=== PATIENT | female | born 2000 | race African-American/Black ===

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

== ENCOUNTER → 2018-03-28 | Outpatient (CLI) | payer SELFPAY ==
--- NOTE | 2018-03-28 14:03 | RADIOLOGY REPORT (SQ) ---
EXAM DESCRIPTION: U/S [id number] TRNABD 1GES W/ODOP COMPLETED DATE/TIME: 03/28/2018 1:26 pm REASON FOR STUDY: Z34.01 ENCNTR FOR SUPRVSN OF NORMAL FIRST PREG, FIRST TRIMESTER Z34.01 ENCNTR FOR SUPRVSN OF NORMAL FIRST PREG, FIRST TRIMES LMP 01/23/2018 COMPARISON: None. TECHNIQUE: Transabdominal static and realtime grayscale images acquired of the pelvis. Additional se lected spectral and color Doppler images recorded. All images stored on PACs. bHCG: Not drawn. CLINICAL DATES: 9 weeks 1 day LIMITATIONS: None. FINDINGS: FETUS: Living intrauterine . ULTRASOUND EGA: 8 weeks 5 days ULTRASOUND AUNG: 11/02/2018 CRL: 2.1 cm FHR: 171 beats per minute. SUBCHORIONIC BLEED: No SIZE OF BLEED: Not applicable. UTERUS: No masses or anomalies. 10 x 7 x 8.7 cm. CERVICAL LENGTH: 2.9 cm. Closed. RIGHT ADNEXA: Ovary not seen. No adnexal free fluid. No adnexal masses. LEFT ADNEXA: Ovary not seen. No adnexal free fluid. No adnexal masses. FREE FLUID: None. OTHER: No other significant finding. IMPRESSION: LIVING INTRAUTERINE . EGA 8 weeks 5 days. Trimester of : First - 0 to 13 weeks. TECHNICAL DOCUMENTATION: JOB ID: [id number] [employer]- All Rights Reserved rev-03/21 Reading location - IP/workstation name: [email or web address]
== END ==
LOC: RAD 14:46
PROVIDERS: ATTEND Nurse Practitioner Women's Health
DX: Z34.01 Encounter for supervision of normal first pregnancy, first trimester (principal)
CPT/HCPCS: 76801

== ENCOUNTER 2018-04-15 16:51 | Emergency (ER) | payer SELFPAY ==
[2018-04-15 17:32] LABS: APPEARANCE,URINE CLOUDY; BILIRUBIN,URINE NEGATIVE (NEGATIVE); COLOR,URINE YELLOW; GLUCOSE, URINE NEGATIVE (NEGATIVE); KETONES,URINE NEGATIVE (NEGATIVE); LEUKOCYTE ESTERASE,URINE SMALL (NEGATIVE); NITRITE,URINE NEGATIVE (NEGATIVE); PROTEIN,URINE NEGATIVE (NEGATIVE); URINE SPECIFIC GRAVITY 1.025; UROBILINOGEN,URINE NEGATIVE mg/dL (<2.0)
--- NOTE | 2018-04-15 17:46 | ER Document Report ---
HPI - HPI Pain Level: 4 Context: Patient is a 11 week 18 year old female who presents to the ED complaining of low back pain for 2 days. She describes it as an ache that is worse in certain positions and improve supine and with rest. denies pyuria, hematuria, abdominal pain, change in bowel habits - REPRODUCTIVE LMP: 11 weeks preg Reproductive: DENIES: : - DERM Skin Color: Normal Past Medical History - Social History Smoking Status: Never Smoker Chew tobacco use (# tins/day): No Frequency of alcohol use: None Drug Abuse: None Family History: Hypertension Patient has suicidal ideation: No Patient has homicidal ideation: No Pulmonary Medical History: Reports: Hx Asthma Renal/ Medical History: Denies: Hx Peritoneal Dialysis Infectious Medical History: Denies: Hx MRSA Past Surgical History: Reports: Hx Inguinal Hernia - Immunizations Immunizations up to date: Yes Hx Diphtheria, Pertussis, Tetanus Vaccination: Yes Vertical Provider Document - CONSTITUTIONAL Notes: PHYSICAL EXAM GENERAL: Alert, interacts well. LUNGS: Clear to auscultation bilaterally, no wheezes, rales, or rhonchi. No respiratory distress. HEART: Regular rate and rhythm. No murmurs, gallops, or rubs. ABDOMEN: Soft, nondistended, nontender. No guarding, rebound, or rigidity.. Bowel sounds present in all 4 quadrants. Back: Tenderness palpation of bilateral paralumbar musculature without any spinous process step-offs, deformities or tenderness. Negative for CVA tenderness EXTREMITIES: Moves all 4 extremities spontaneously. No edema, radial and dorsalis pedis pulses 2/4 bilaterally. No cyanosis. NEUROLOGICAL: Alert and oriented x4. Normal speech. PSYCH: Normal affect, normal mood. SKIN: Warm, dry, normal turgor. No rashes or lesions noted. - INFECTION CONTROL TRAVEL OUTSIDE OF THE [place] IN LAST 30 DAYS: No Course - Re-evaluation Re-evalutation: 04/15/18 17:45 Patient is a 18-year-old female presents emergency room the chief complaint of back pain during with any concerns for underlying pyelonephritis. Urinalysis consistent with early onset UTI given patient's status will treat. Patient given strict return precautions and education on utilizing Tylenol for as needed back pain. - Laboratory Laboratory results interpreted by me: 04/15/18 17:10 Ur Leukocyte Esterase SMALL H Urine Ascorbic Acid 40 H Discharge - Discharge Clinical Impression: Back pain Qualifiers: Back pain location: low back pain Chronicity: acute Back pain laterality: unspecified Sciatica presence: without sciatica Qualified Code(s): M54.5 - Low back pain Condition: Good Disposition: HOME, SELF-CARE Instructions: Low Back Pain ([facility]), Urinary Tract Infection ([facility]) Prescriptions: Cephalexin Monohydrate [Keflex 500 mg Capsule] 500 mg PO BID 5 Days capsule Referrals: JOCELIN BELTRAN ARBORER [Primary Care Provider] - Follow up as needed
[2018-04-15] MEDS ORDERED: CEPHALEXIN 500 MG CAPSULE PO ONE (17:47)
[2018-04-15] MEDS ORDERED: ACETAMINOPHEN 325 MG TABLET PO ONE (17:47)
== END 2018-04-15 17:52 | disposition home or self-care (01) ==
LOC: ER 16:51
DX: O26.91 Pregnancy related conditions, unspecified, first trimester (principal); M54.5 Low back pain; Z3A.11 11 weeks gestation of pregnancy
CPT/HCPCS: 81001; 99283

== ENCOUNTER 2018-06-08 00:35 | Emergency (ER) | payer MEDICAID ==
--- NOTE | 2018-06-08 01:41 | ER Document Report ---
ED Medical Screen (RME) - General Chief Complaint: Shortness Of Breath Stated Complaint: CHEST PAIN Time Seen by Provider: 06/08/18 01:36 Mode of Arrival: Ambulatory Information source: Patient Notes: 18-year-old female presents to ED for shortness of breath and chest pain. She states she was cleaning with bleach this morning became very short of breath she used her inhaler went to bed and she was fine that she woke up with chest pain she tried using her inhaler can she states that she did not have any relief from the pain when she used her inhaler tonight. She states she is still having some chest pain and some shortness of breath. Her lungs are clear to auscultation she states it hurts with each deep breath. O2 sats 96% she has a temp of 99.3 respirations are 20 unlabored. She is 19 weeks . I have greeted and performed a rapid initial assessment of this patient. A comprehensive ED assessment and evaluation of the patient, analysis of test results and completion of medical decision making process will be conducted by an additional ED providers. TRAVEL OUTSIDE OF THE [place] IN LAST 30 DAYS: No - Related Data Allergies/Adverse Reactions: No Known Allergies Allergy (Verified 04/15/18 16:52) Past Medical History Pulmonary Medical History: Reports: Hx Asthma Renal/ Medical History: Denies: Hx Peritoneal Dialysis Infectious Medical History: Denies: Hx MRSA Past Surgical History: Reports: Hx Inguinal Hernia - Immunizations Immunizations up to date: Yes Hx Diphtheria, Pertussis, Tetanus Vaccination: Yes Physical Exam - Vital signs Vitals: Temp Pulse Resp BP Pulse Ox 99.3 F 52 L 20 124/70 96 06/08/18 01:03 06/08/18 01:03 06/08/18 01:03 06/08/18 01:03 06/08/18 01:03 Course - Vital Signs Vital signs: Temp Pulse Resp BP Pulse Ox 99.3 F 52 L 20 124/70 96 06/08/18 01:03 06/08/18 01:03 06/08/18 01:03 06/08/18 01:03 06/08/18 01:03
--- NOTE | 2018-06-08 02:09 | RADIOLOGY REPORT (SQ) ---
EXAM DESCRIPTION: XR CHEST 2 VIEWS COMPLETED DATE/TME: 06/08/2018 01:37 CLINICAL HISTORY: 18 years Female, short of breath after cleaning with bleach COMPARISON: None. FINDINGS: Adequate lung volume, clear parenchyma, normal cardiac silhouette, and intact bony thorax. IMPRESSION: No acute cardiopulmonary findings.
--- NOTE | 2018-06-08 05:06 | ER Document Report ---
ED Respiratory Problem - General Chief Complaint: Shortness Of Breath Stated Complaint: CHEST PAIN Time Seen by Provider: 06/08/18 01:36 Mode of Arrival: Ambulatory Notes: Patient is a 18-year-old female, at 19 weeks gestation, the comes emergency department for chief complaint of pain in her chest when she takes a deep breath. She states that she was cleaning with bleach during the morning, she started feeling short of breath, she states that she stopped, she has used her inhaler, but she has developed pain with deep breathing. She denies current shortness of breath, she denies nausea vomiting, dizziness, abdominal pain, vaginal bleeding, flank pain, headache. She does not smoke, she denies recent travel or surgery, denies lower extremity swelling, denies personal or family history of blood clot. She takes no daily medications. TRAVEL OUTSIDE OF THE [place] IN LAST 30 DAYS: No - Related Data Allergies/Adverse Reactions: No Known Allergies Allergy (Verified 04/15/18 16:52) Past Medical History - General Information source: Patient - Social History Smoking Status: Never Smoker Frequency of alcohol use: None Drug Abuse: None Lives with: Family Family History: Hypertension Patient has suicidal ideation: No Patient has homicidal ideation: No Pulmonary Medical History: Reports: Hx Asthma Renal/ Medical History: Denies: Hx Peritoneal Dialysis Infectious Medical History: Denies: Hx MRSA Past Surgical History: Reports: Hx Inguinal Hernia - Immunizations Immunizations up to date: Yes Hx Diphtheria, Pertussis, Tetanus Vaccination: Yes Review of Systems - Review of Systems Constitutional: No symptoms reported EENT: No symptoms reported Cardiovascular: See HPI Respiratory: See HPI Gastrointestinal: No symptoms reported Genitourinary: No symptoms reported Female Genitourinary: No symptoms reported Musculoskeletal: No symptoms reported Skin: No symptoms reported Hematologic/Lymphatic: No symptoms reported Neurological/Psychological: No symptoms reported Physical Exam - Vital signs Vitals: Temp Pulse Resp BP Pulse Ox 99.3 F 52 L 20 124/70 96 06/08/18 01:03 06/08/18 01:03 06/08/18 01:03 06/08/18 01:03 06/08/18 01:03 - Notes Notes: GENERAL: Alert, interacts well. No acute distress. HEAD: Normocephalic, atraumatic. EYES: Pupils equal, round, and reactive to light. Extraocular movements intact. ENT: Oral mucosa moist, tongue midline. NECK: Full range of motion. Supple. Trachea midline. LUNGS: Clear to auscultation bilaterally, no wheezes, rales, or rhonchi. No respiratory distress. HEART: Regular rate and rhythm. Borderline bradycardia. No murmur ABDOMEN: Slightly gravid abdomen. No tenderness noted. Bowel sounds present in all 4 quadrants. EXTREMITIES: Moves all 4 extremities spontaneously. No edema, normal radial and dorsalis pedis pulses bilaterally. No cyanosis. BACK: no cervical, thoracic, lumbar midline tenderness. No saddle anesthesia, normal distal neurovascular exam. NEUROLOGICAL: Alert and oriented x3. Normal speech. [cranial nerves II through XII grossly intact]. PSYCH: Normal affect, normal mood. SKIN: Warm, dry, normal turgor. No rashes or lesions noted. Course - Re-evaluation Re-evalutation: Chest pain only with inspiration. Atypical symptoms. The only risk factor for pulmonary embolism patient has his . No indicators otherwise including no tachycardia, lower extremely swelling, recent travel, history of the same, no smoking, no tachypnea or hypoxia. No dyspnea on exertion. Chest x -ray reviewed and unremarkable. EKG reviewed and unremarkable. I did discuss with patient, states she feels good and she is ready to leave. Discussed follow -up and return precautions. Patient states understanding and agreement. - Vital Signs Vital signs: Temp Pulse Resp BP Pulse Ox 98.3 F 52 L 20 115/61 96 06/08/18 05:12 06/08/18 01:03 06/08/18 01:03 06/08/18 05:12 06/08/18 01:03 Discharge - Discharge Clinical Impression: Shortness of breath Chest pain Qualifiers: Chest pain type: unspecified Qualified Code(s): R07.9 - Chest pain, unspecified Condition: Stable Disposition: HOME, SELF-CARE Additional Instructions: Your workup and examination tonight do not show any concerning abnormalities. Take Tylenol for pain, symptoms of pain should resolve with time. You can use your albuterol inhaler as needed for wheezing/cough/shortness of breath. Follow-up with [facility] TECHNICIAN for additional evaluation and management. Return if you worsen including difficulty breathing, passing out, fever, severe pain, or any other concerning or worsening symptoms. Your chest pain has been diagnosed as pleuritis (pleurisy). This is an inflammation of the surface of the lung tissue. It can be caused by a virus or , occasionally, old scar tissue. It is painful but, for the most part, not a serious problem. This pain is usually made worse by deep breathing, coughing, or sudden movements of the upper body or arms. The treatment is relief of symptoms. It includes rest, antiinflammatory medication, and pain medicine. Resolution of the pain is usually rapid once antiinflammatory medication is started. Warning signs of a more serious problem include: a fever, shortness of breath, pain that radiates to your jaw, shoulders or arms, or coughing up bloody sputum. If any of these symptoms occur, call the physician at once.
[2018-06-08 06:30] VITALS: BP 115/61
--- NOTE | 2018-06-08 09:54 | EKG REPORT ---
SEVERITY:- NORMAL ECG - SINUS RHYTHM : Confirmed by: Ilan Lee 08-Jun-2018 09:53:23
== END 2018-06-08 05:20 | disposition home or self-care (01) ==
LOC: ER 00:35
DX: O99.512 Diseases of the respiratory system complicating pregnancy, second trimester (principal); J45.909 Unspecified asthma, uncomplicated; O26.892 Other specified pregnancy related conditions, second trimester; R07.1 Chest pain on breathing; Z3A.19 19 weeks gestation of pregnancy
CPT/HCPCS: 71046; 93005; 93010; 99285

== ENCOUNTER 2018-07-23 12:37 | Emergency (ER) | payer MEDICAID ==
[2018-07-23] MEDS ORDERED: ACETAMINOPHEN 325 MG TABLET PO ONE (13:59)
[2018-07-23] MEDS ORDERED: CEPHALEXIN 500 MG CAPSULE PO ONE (15:34)
--- NOTE | 2018-07-23 15:39 | ER Document Report ---
HPI - HPI Patient complains to provider of: Abscess Onset: Other - 3 days Onset/Duration: Persistent Quality of pain: Achy Pain Level: 4 Context: She complains of abscess to right medial thigh area for the past 3 days. Patient is currently 26 weeks . Patient denies any fever. Associated Symptoms: Other - Abscess to right thigh Exacerbated by: Movement Relieved by: Denies Similar symptoms previously: Yes Recently seen / treated by doctor: No - ROS ROS below otherwise negative: Yes Systems Reviewed and Negative: Yes All other systems reviewed and negative - CONSTITUTIONAL Constitutional: DENIES: Fever, Chills - REPRODUCTIVE Reproductive: DENIES: : - MUSCULOSKELETAL Musculoskeletal: REPORTS: Extremity pain - DERM Skin Color: Erythema Notes: Abscess Past Medical History - General Information source: Patient - Social History Smoking Status: Never Smoker Frequency of alcohol use: None Drug Abuse: None Lives with: Family Family History: Hypertension Patient has suicidal ideation: No Patient has homicidal ideation: No Pulmonary Medical History: Reports: Hx Asthma Renal/ Medical History: Denies: Hx Peritoneal Dialysis Infectious Medical History: Denies: Hx MRSA Past Surgical History: Reports: Hx Inguinal Hernia - Immunizations Immunizations up to date: Yes Hx Diphtheria, Pertussis, Tetanus Vaccination: Yes Vertical Provider Document - CONSTITUTIONAL Agree With Documented VS: Yes Exam Limitations: No Limitations General Appearance: WD/WN, No Apparent Distress - INFECTION CONTROL TRAVEL OUTSIDE OF THE [place] IN LAST 30 DAYS: No - HEENT HEENT: Atraumatic, Normocephalic - NECK Neck: Normal Inspection, Supple - RESPIRATORY Respiratory: Breath Sounds Normal, No Respiratory Distress - CARDIOVASCULAR Cardiovascular: Regular Rate, Regular Rhythm - BACK Back: Normal Inspection - MUSCULOSKELETAL/EXTREMETIES Musculoskeletal/Extremeties: MAEW - NEURO Level of Consciousness: Awake, Alert, Appropriate Motor/Sensory: No Motor Deficit - DERM Integumentary: Warm, Dry, Abscess Notes: mild erythema overlying abscess Course - Vital Signs Vital signs: Temp Pulse Resp BP Pulse Ox 98.4 F 92 14 110/66 100 07/23/18 12:47 07/23/18 12:47 07/23/18 12:47 07/23/18 12:47 07/23/18 12:47 Procedures - Incision and Drainage Right Leg Type: Simple Anesthetic type: 1% Lidocaine Blade size: 11 I&D procedure: Betadine prep applied Incision Method: Incision made by scalpel Amount/type of drainage: scant amount of purlent drainage Adult Front & Back picture: 1 - abscess Discharge - Discharge Clinical Impression: Abscess, Encounter for incision and drainage procedure Cellulitis Qualifiers: Site of cellulitis: extremity Site of cellulitis of extremity: lower extremity Laterality: right Qualified Code(s): L03.115 - Cellulitis of right lower limb Condition: Stable Disposition: HOME, SELF-CARE Instructions: Abscess ([facility]), Cephalexin ([facility]), Oral Narcotic Medication ([facility]) Additional Instructions: Return immediately for any new or worsening symptoms Followup with your primary care provider, call tomorrow to make a followup appointment Warm compresses to leg Prescriptions: Cephalexin Monohydrate [Keflex 500 mg Capsule] 500 mg PO Q6H 7 Days capsule Referrals: ROS CONNER MD [Primary Care Provider] - Follow up tomorrow
[2018-07-23 16:06] VITALS: BP 111/67
== END 2018-07-23 16:05 | disposition home or self-care (01) ==
LOC: ER 12:37
PROC: 0H9HXZZ Drainage of Right Upper Leg Skin, External Approach (ICD-10-PCS; principal; 2018-07-23)
DX: L02.415 Cutaneous abscess of right lower limb (principal); L03.115 Cellulitis of right lower limb
CPT/HCPCS: 99283; 10060; J3490

== ENCOUNTER 2018-07-29 20:14 | Emergency (ER) | payer MEDICAID ==
[2018-07-29 20:36] VITALS: BP 127/75
--- NOTE | 2018-07-29 20:48 | ER Document Report ---
HPI - HPI Patient complains to provider of: skin rash Onset: Other - 4 days Onset/Duration: Persistent Pain Level: 4 Context: Patient complains of pruritic skin rash to perineum that started after recently starting antibiotics. Patient was concerned she might be having an allergic reaction. Patient is currently 27 weeks . Associated Symptoms: Other - Skin rash Exacerbated by: Denies Relieved by: Denies Similar symptoms previously: No Recently seen / treated by doctor: Yes - ROS ROS below otherwise negative: Yes Systems Reviewed and Negative: Yes All other systems reviewed and negative - CONSTITUTIONAL Constitutional: DENIES: Fever - GASTROINTESTINAL Gastrointestinal: DENIES: Abdominal Pain - REPRODUCTIVE Reproductive: DENIES: : - DERM Skin Color: Normal Skin Problems: Rash Past Medical History - General Information source: Patient Last Menstrual Period: 27 weeks - Social History Smoking Status: Never Smoker Frequency of alcohol use: None Drug Abuse: None Occupation: Call center Lives with: Family Family History: Hypertension Pulmonary Medical History: Reports: Hx Asthma Renal/ Medical History: Denies: Hx Peritoneal Dialysis Infectious Medical History: Denies: Hx MRSA Past Surgical History: Reports: Hx Inguinal Hernia - Immunizations Immunizations up to date: Yes Hx Diphtheria, Pertussis, Tetanus Vaccination: Yes Vertical Provider Document - CONSTITUTIONAL Agree With Documented VS: Yes Exam Limitations: No Limitations General Appearance: WD/WN, No Apparent Distress - INFECTION CONTROL TRAVEL OUTSIDE OF THE [place] IN LAST 30 DAYS: No - HEENT HEENT: Atraumatic, Normocephalic - NECK Neck: Normal Inspection - RESPIRATORY Respiratory: Breath Sounds Normal, No Respiratory Distress - CARDIOVASCULAR Cardiovascular: Regular Rate, Regular Rhythm - REPRODUCTIVE Female Genitalia: Abnormal Inspection - Moist rash to perineum and inguinal folds with satellite lesions - MUSCULOSKELETAL/EXTREMETIES Musculoskeletal/Extremeties: MAEW, FROM - NEURO Level of Consciousness: Awake, Alert, Appropriate Motor/Sensory: No Motor Deficit - DERM Integumentary: Warm, Dry, Rash - Moist rash with maculopapular lesions with the perineum and inguinal folds Course - Re-evaluation Re-evalutation: 07/29/18 21:03 Patient is currently 27 weeks with a fungal skin rash, patient encouraged to follow-up with [facility] for recheck. Patient was recently on antibiotics for an abscess. Abscess appears to be resolving. Patient advised that she can discontinue the antibiotics. Good hygiene discussed with patient. - Vital Signs Vital signs: Temp Pulse Resp BP Pulse Ox 98.5 F 98 20 127/75 H 96 07/29/18 20:34 07/29/18 20:34 07/29/18 20:34 07/29/18 20:34 07/29/18 20:34 Discharge - Discharge Clinical Impression: Candidiasis Condition: Stable Disposition: HOME, SELF-CARE Instructions: Vaginal Yeast Infection ([facility]) Additional Instructions: Return immediately for any new or worsening symptoms Followup with your primary care provider, call tomorrow to make a followup appointment You may stop the oral antibiotics Prescriptions: Clotrimazole [Antifungal] 1 applic TP BID #113 cream..g. Referrals: ROS CONNER MD [Primary Care Provider] - Follow up tomorrow
== END 2018-07-29 21:09 | disposition home or self-care (01) ==
LOC: ER 20:14
DX: O98.812 Other maternal infectious and parasitic diseases complicating pregnancy, second trimester (principal); B37.2 Candidiasis of skin and nail; O99.512 Diseases of the respiratory system complicating pregnancy, second trimester; J45.909 Unspecified asthma, uncomplicated; Z3A.27 27 weeks gestation of pregnancy
CPT/HCPCS: 99282

== ENCOUNTER 2018-08-02 22:15 | Outpatient (CLI) | payer MEDICAID ==
--- NOTE | 2018-08-03 00:37 | RADIOLOGY REPORT (SQ) ---
EXAM DESCRIPTION: US LIMITED COMPLETED DATE/TME: 08/02/2018 00:00 CLINICAL HISTORY: 18 years, Female, Cervical Length COMPARISON: None. TECHNIQUE: Grayscale and Doppler images of the pelvis LIMITATIONS: None. FINDINGS: Cervix is closed and measures 3.3 cm in diameter. A single live intrauterine is identified. The fetus is in the cephalic position. heart rate measures 155 bpm. The placenta is anterior and marginal. IMPRESSION: Single live intrauterine . Closed cervix measuring 3.3 cm in length. 2011 [employer]- All Rights Reserved
[2018-08-03 01:33] LABS: APPEARANCE,URINE SLIGHTLY-CLOUDY; BILIRUBIN,URINE NEGATIVE (NEGATIVE); COLOR,URINE YELLOW; GLUCOSE, URINE NEGATIVE (NEGATIVE); KETONES,URINE NEGATIVE (NEGATIVE); LEUKOCYTE ESTERASE,URINE LARGE (NEGATIVE); NITRITE,URINE NEGATIVE (NEGATIVE); PROTEIN,URINE NEGATIVE (NEGATIVE); URINE SPECIFIC GRAVITY 1.012; UROBILINOGEN,URINE NEGATIVE mg/dL (<2.0)
[2018-08-03 01:45] LABS: URINE AMPHETAMINES SCREEN NEGATIVE; URINE BARBITURATES SCREEN NEGATIVE; URINE BENZODIAZEPINES SCREEN NEGATIVE; URINE COCAINE SCREEN NEGATIVE; URINE MARIJUANA (THC) SCREEN NEGATIVE; URINE METHADONE SCREEN NEGATIVE; URINE PHENCYCLIDINE SCREEN NEGATIVE
--- NOTE | 2018-08-03 02:16 | PROGRESS NOTE E ---
Progress Note NAME: ERON MATOS : 2000 AGE: 18Y DATE: 08/03/2018 ROOM: SUBJECTIVE: The patient is a 18-year-old G1 at 27 weeks and 2 days gestational age, who presented to triage with a chief complaint of spotting x1. Denies any actual vaginal bleeding, leakage of fluid, or any contractions. The patient does report good movement. The patient denies any high risk during this . The patient denies any fever, chills, nausea, vomiting, chest pain, shortness of breath, or any right upper quadrant pain. Ordered cervical length on the patient and the cervical length was measured at 3.3 cm via transvaginal ultrasound, done by Radiology. The cervix was also visualized to be closed. The presentation was vertex and the placenta was anterior and marginal. The patient was instituted also on tocometer, depicted no contractions whatsoever. heart tones depicted baseline of 130 beats per minute with present accelerations and absent decelerations with moderate variability for a 27 week gestational age. OBJECTIVE: VITAL SIGNS: The patient's vital signs are stable. Normotensive, not tachycardic, afebrile. GENERAL: Looks very comfortable. The patient is awake, alert, and oriented x3 in no apparent distress. CARDIAC: Cardiac regular rate and rhythm, no murmur, gallops, or rubs. LUNGS: Clear to auscultation bilaterally. No wheezes, rales, or rhonchi. ABDOMEN: Gravid. EXTREMITIES: Deep tendon reflexes 1+. No clubbing, cyanosis, or edema. 2+ pulses bilaterally. IMAGING: Cervix is closed, measures 3.3 cm in diameter. Single live intrauterine is identified. heart measures 155 beats per minute. Placenta is anterior and marginal. ASSESSMENT AND PLAN: A 18-year-old G1 at 27 weeks and 2 days gestational age, with vaginal spotting x1 episode. Very low likely chance of labor, given the presentation of no contractions on the monitor and no further bleeding or spotting visualized on the pad, with an adequate cervical length of 3.3 cm, and a closed cervix on visual transvaginal ultrasound. The patient is also very comfortable. The patient is given labor precautions and instructed on when to re-present. The patient will need to follow up with primary [facility]IVER in the next couple of days and will recommend repeat ultrasound in 3 to 4 weeks for evaluation of the placenta again. DICTATING PHYSICIAN: Sonia Kilgore MD [id number] PHY#: [id number] ID: [id number] JOB#: [id number] ACCT: [id number] cc: >
== END 2018-08-03 02:09 | disposition home or self-care (01) ==
LOC: LC 22:15
PROVIDERS: ATTEND Obstetrics & Gynecology
PROC: 4A1HXCZ Monitoring of Products of Conception, Cardiac Rate, External Approach (ICD-10-PCS; principal; 2018-08-02)
DX: O47.02 False labor before 37 completed weeks of gestation, second trimester (principal); Z3A.27 27 weeks gestation of pregnancy
CPT/HCPCS: 76815; 80307; 81001

== ENCOUNTER 2018-09-20 20:16 | Outpatient (CLI) | payer MEDICAID ==
[2018-09-20 21:18] LABS: APPEARANCE,URINE SLIGHTLY-CLOUDY; BILIRUBIN,URINE NEGATIVE (NEGATIVE); GLUCOSE, URINE NEGATIVE (NEGATIVE); KETONES,URINE TRACE mg/dL (NEGATIVE); LEUKOCYTE ESTERASE,URINE SMALL (NEGATIVE); NITRITE,URINE NEGATIVE (NEGATIVE); PROTEIN,URINE 100 mg/dL (NEGATIVE); URINE SPECIFIC GRAVITY 1.029
[2018-09-20 21:27] LABS: COLOR,URINE DARK YELLOW
[2018-09-20 21:33] LABS: URINE AMPHETAMINES SCREEN NEGATIVE; URINE BARBITURATES SCREEN NEGATIVE; URINE BENZODIAZEPINES SCREEN NEGATIVE; URINE COCAINE SCREEN NEGATIVE; URINE MARIJUANA (THC) SCREEN NEGATIVE; URINE METHADONE SCREEN NEGATIVE; URINE PHENCYCLIDINE SCREEN NEGATIVE
[2018-09-20] MEDS ORDERED: ACETAMINOPHEN 325 MG TABLET ONE (21:49)
[2018-09-20] MEDS ORDERED: PROCHLORPERAZINE MALEATE 10 MG TABLET ONE (21:49)
--- NOTE | 2018-09-20 22:06 | Non Stress Test Report ---
Non Stress Test Datetime Report Generated by CPN: 09/20/2018 22:05 DEMOGRAPHIC EGA NST: 34.2 INDICATION Indication for Study: Ordered by Provider Indication for Study (NST) Other: LC URINE RESULTS Urine Protein, NST: Positive Urine Ketones - NST: Positive Urine Glucose - NST: Negative Urine Blood - NST: Negative MONITORING Monitor Explained: Monitor Explained; Test Explained; Patient Verbalized Understanding Time on Monitor: 09/20/2018 20:42 Time off Monitor: 09/20/2018 22:00 NST Duration: 78 NST INTERVENTIONS NST Interventions: None Physician Notified NST: Carlo BABY A: [id number] BABY A Movement : Present Contraction Frequency : none FHR Baseline : 135 Accelerations : 15X15 Decelerations : None Variability : Moderate 6-25bpm NST Review: Meets Criteria for Reactive NST NST Review and Verified By : Ranjana Short RN NST Results: Reactive NST REPORT Report Trigger: Send Report
[2018-09-20] MEDS ORDERED: RINGERS SOLUTION,LACTATED 1,000 ML IV ONE (22:10)
[2018-09-20] MEDS ORDERED: ACETAMINOPHEN 325 MG TABLET PO ONE (22:10)
[2018-09-20] MEDS ORDERED: PROCHLORPERAZINE MALEATE 10 MG TABLET PO ONE (22:10)
== END 2018-09-20 23:05 | disposition home or self-care (01) ==
LOC: LC 20:16
PROVIDERS: ATTEND Obstetrics & Gynecology
PROC: 4A1HXCZ Monitoring of Products of Conception, Cardiac Rate, External Approach (ICD-10-PCS; principal; 2018-09-20)
DX: O47.03 False labor before 37 completed weeks of gestation, third trimester (principal); O26.893 Other specified pregnancy related conditions, third trimester; R42 Dizziness and giddiness; Z3A.34 34 weeks gestation of pregnancy
CPT/HCPCS: 59025; 81005; 80307; J3490; S0183

== ENCOUNTER 2018-10-05 11:43 | Outpatient (CLI) | payer MEDICAID ==
[2018-10-05 12:23] LABS: APPEARANCE,URINE CLEAR; BILIRUBIN,URINE NEGATIVE (NEGATIVE); COLOR,URINE YELLOW; GLUCOSE, URINE NEGATIVE (NEGATIVE); KETONES,URINE TRACE mg/dL (NEGATIVE); LEUKOCYTE ESTERASE,URINE SMALL (NEGATIVE); NITRITE,URINE NEGATIVE (NEGATIVE); PROTEIN,URINE NEGATIVE (NEGATIVE); URINE SPECIFIC GRAVITY 1.016
--- NOTE | 2018-10-05 12:27 | Non Stress Test Report ---
Non Stress Test Datetime Report Generated by CPN: 10/05/2018 12:27 DEMOGRAPHIC EGA NST: 36.3 INDICATION Indication for Study: Decreased Movement VITAL SIGNS Temperature - NST: 98.4 RESP - NST: 15 MONITORING Monitor Explained: Monitor Explained; Test Explained; Patient Verbalized Understanding Time on Monitor: 10/05/2018 12:00 Time off Monitor: 10/05/2018 12:26 NST Duration: 26 NST INTERVENTIONS NST Interventions: Reposition Patient Physician Notified NST: Dr Carlo BABY A: [id number] BABY A Movement : Present Contraction Frequency : irreg FHR Baseline : 125 Accelerations : 15X15 Decelerations : None Variability : Moderate 6-25bpm NST Review: Meets Criteria for Reactive NST NST Review and Verified By : Kylie Posey RN NST Results: Reactive NST REPORT Report Trigger: Send Report
[2018-10-05 12:37] LABS: URINE AMPHETAMINES SCREEN NEGATIVE; URINE BARBITURATES SCREEN NEGATIVE; URINE BENZODIAZEPINES SCREEN NEGATIVE; URINE COCAINE SCREEN NEGATIVE; URINE MARIJUANA (THC) SCREEN NEGATIVE; URINE METHADONE SCREEN NEGATIVE; URINE PHENCYCLIDINE SCREEN NEGATIVE
== END 2018-10-05 12:29 | disposition home or self-care (01) ==
LOC: LC 11:43
PROVIDERS: ATTEND Obstetrics & Gynecology
PROC: 4A1HXCZ Monitoring of Products of Conception, Cardiac Rate, External Approach (ICD-10-PCS; principal; 2018-10-05)
DX: O36.8130 Decreased fetal movements, third trimester, not applicable or unspecified (principal); Z3A.36 36 weeks gestation of pregnancy
CPT/HCPCS: 59025; 80307; 81001

== ENCOUNTER 2018-11-05 21:53 | Inpatient (IN) | payer MEDICAID ==
[2018-11-05] MEDS ORDERED: ACETAMINOPHEN 325 MG TABLET PO PRN (22:20)
[2018-11-05] MEDS ORDERED: DINOPROSTONE 10 MG VAGINAL INSERT.SR PV ONE (22:20)
[2018-11-05] MEDS ORDERED: OXYTOCIN/NORMAL SALINE 20 UNIT/1,000 ML RTUINJ IV PRN (22:20)
[2018-11-05] MEDS ORDERED: ZOLPIDEM TARTRATE 5 MG TABLET PO PRN (22:20)
[2018-11-05] MEDS ORDERED: RINGERS SOLUTION,LACTATED 1,000 ML IV PRN (22:20)
[2018-11-05] MEDS ORDERED: RINGERS SOLUTION,LACTATED 300 ML IV ONE (22:20)
[2018-11-05] MEDS ORDERED: MAG HYDROX/AL HYDROX/SIMETH SUSP 30 ML UDCUP PO PRN (22:20)
[2018-11-05] MEDS ORDERED: DINOPROSTONE 10 MG VAGINAL INSERT.SR ONE (22:48)
[2018-11-05 23:05] LABS: APPEARANCE,URINE CLEAR; BILIRUBIN,URINE NEGATIVE (NEGATIVE); COLOR,URINE YELLOW; GLUCOSE, URINE NEGATIVE (NEGATIVE); KETONES,URINE NEGATIVE (NEGATIVE); LEUKOCYTE ESTERASE,URINE MODERATE (NEGATIVE); NITRITE,URINE NEGATIVE (NEGATIVE); PROTEIN,URINE NEGATIVE (NEGATIVE); URINE SPECIFIC GRAVITY 1.017
[2018-11-05 23:06] LABS: ABSOLUTE EOSINOPHILS # (AUTO) 0.2 10^3/uL (0.0-0.6); ABSOLUTE LYMPHOCYTES (AUTO) 2.2 10^3/uL (0.5-4.7); ABSOLUTE MONOCYTES (AUTO) 0.7 10^3/uL (0.1-1.4); ABSOLUTE NEUT (AUTO) 3.7 10^3/uL (1.7-8.2); BASOPHILS % (AUTO) 0.4 % (0-2); EOSINOPHILS % (AUTO) 3.2 % (0-6); HEMATOCRIT 28.6 % (36.0-47.0); HEMOGLOBIN 9.3 g/dL (12.0-15.5); MEAN CORPUSCULAR HEMOGLOBIN 25.4 pg (27.0-33.4); MEAN CORPUSCULAR HGB CONC 32.7 g/dL (32.0-36.0); MEAN CORPUSCULAR VOLUME 78 fl (80-97); PLATELET COUNT 247 10^3/uL (150-450); RED BLOOD COUNT 3.67 10^6/uL (3.72-5.28); RED CELL DISTRIBUTION WIDTH 20.4 % (11.5-14.0); SEGMENTED NEUTROPHILS % (AUTO) 54.4 % (42-78); TOTAL CELLS COUNTED % (AUTO) 100 %; WHITE BLOOD COUNT 6.9 10^3/uL (4.0-10.5)
[2018-11-05 23:20] LABS: URINE AMPHETAMINES SCREEN NEGATIVE; URINE BARBITURATES SCREEN NEGATIVE; URINE BENZODIAZEPINES SCREEN NEGATIVE; URINE COCAINE SCREEN NEGATIVE; URINE MARIJUANA (THC) SCREEN NEGATIVE; URINE METHADONE SCREEN NEGATIVE; URINE PHENCYCLIDINE SCREEN NEGATIVE
[2018-11-06] MEDS ORDERED: ZOLPIDEM TARTRATE 5 MG TABLET ONE (01:23)
[2018-11-06] MEDS ORDERED: ACETAMINOPHEN 325 MG TABLET ONE (08:26)
[2018-11-06] MEDS ORDERED: OXYTOCIN 10 UNIT/ML VIAL ONE (12:26)
[2018-11-06] MEDS ORDERED: MISOPROSTOL 0.2 MG TABLET ONE (12:26)
[2018-11-06] MEDS ORDERED: LIDOCAINE 1% INJ-PF (10 MG/ML) 30 ML SDV ONE (12:27)
[2018-11-06] MEDS ORDERED: OXYTOCIN/NORMAL SALINE 20 UNIT/1,000 ML RTUINJ ONE (12:27)
[2018-11-06] MEDS ORDERED: NALBUPHINE HCL INJ 10 MG/1 ML AMPULE ONE (20:11)
[2018-11-06] MEDS ORDERED: ONDANSETRON HCL INJ/PF 4 MG/2 ML SDV ONE (20:28)
[2018-11-07] MEDS ORDERED: BUPIVACAINE HCL 0.25 % INJ/PF (2.5 MG/1 ML) 30 ML VIAL ONE (01:04)
[2018-11-07] MEDS ORDERED: ACETAMINOPHEN 325 MG TABLET PO ONE (09:46)
[2018-11-07] MEDS ORDERED: ACETAMINOPHEN 325 MG TABLET ONE (09:52)
[2018-11-07] MEDS ORDERED: OXYTOCIN/NORMAL SALINE 20 UNIT/1,000 ML RTUINJ ONE (10:12)
[2018-11-07] MEDS ORDERED: CEFAZOLIN 1 GM/D5W RTU 2 GM/100 ML RTUPB IV ONE (10:15)
[2018-11-07] MEDS ORDERED: CEFAZOLIN 1 GM/D5W RTU 1 GM/50 ML RTUPB IV ONE ×2 (10:16)
[2018-11-07] MEDS ORDERED: METHYLERGONOVINE MALEATE INJ/PF 0.2 MG/1 ML AMPULE ONE (11:13)
[2018-11-07] MEDS ORDERED: GLYCERIN/WITCH HAZEL LEAF 1 EACH MED..PAD TP PRN (11:32)
[2018-11-07] MEDS ORDERED: PROMETHAZINE HCL INJ 25 MG/1 ML VIAL IV PRN (11:32)
[2018-11-07] MEDS ORDERED: BENZOCAINE/MENTHOL AEROSOL SPRAY 56 ML TOP PRN (11:32)
[2018-11-07] MEDS ORDERED: DIBUCAINE 1% OINTMENT 28 GM TP PRN (11:32)
[2018-11-07] MEDS ORDERED: OXYTOCIN/NORMAL SALINE 20 UNIT/1,000 ML RTUINJ IV PRN (11:32)
[2018-11-07] MEDS ORDERED: NA PHOS,M-B/NA PHOS,DI-BA (ADULT) 133 ML ENEMA PR PRN (11:32)
[2018-11-07] MEDS ORDERED: METHYLERGONOVINE MALEATE INJ/PF 0.2 MG/1 ML AMPULE IM PRN (11:32)
[2018-11-07] MEDS ORDERED: DIPH/PERTUSS(ACELL)/TETANUS VAC/PF 0.5 ML SYR (>=10YO) IM PRN (11:32)
[2018-11-07] MEDS ORDERED: PSEUDOEPHEDRINE HCL 30 MG TABLET PO PRN (11:32)
[2018-11-07] MEDS ORDERED: ZOLPIDEM TARTRATE 5 MG TABLET PO PRN (11:32)
[2018-11-07] MEDS ORDERED: ACETAMINOPHEN 650 MG SUPP.RECT PR PRN (11:32)
[2018-11-07] MEDS ORDERED: MISOPROSTOL 0.2 MG TABLET PR PRN (11:32)
[2018-11-07] MEDS ORDERED: DIPHENHYDRAMINE HCL 25 MG CAPSULE PO PRN (11:32)
[2018-11-07] MEDS ORDERED: PROMETHAZINE HCL 25 MG SUPP.RECT PR PRN (11:32)
[2018-11-07] MEDS ORDERED: MAGNESIUM HYDROXIDE SUSP 30 ML UDCUP PO PRN (11:32)
[2018-11-07] MEDS ORDERED: PROMETHAZINE HCL 25 MG TABLET PO PRN (11:32)
[2018-11-07] MEDS ORDERED: ACETAMINOPHEN WITH CODEINE #3 TABLET PO PRN ×2 (11:32)
[2018-11-07] MEDS ORDERED: MEASLES,MUMPS&RUBELLA VACC/PF 0.5 ML VIAL SUBCUT PRN (11:32)
[2018-11-07] MEDS ORDERED: CEFAZOLIN 1 GM/D5W RTU 1 GM/50 ML RTUPB IV SCH ×2 (12:00)
[2018-11-07] MEDS ORDERED: IBUPROFEN 800 MG TABLET ONE (13:11)
[2018-11-07] MEDS ORDERED: FENTANYL/BUPIVACAINE/NS/PF 300 MCG/150 ML RTUINJ EPI ONE (13:28)
[2018-11-07] MEDS: FAMOTIDINE 20 MG TABLET PO SCH (21:25)
[2018-11-07] MEDS: IBUPROFEN 800 MG TABLET PO SCH (21:26)
[2018-11-08] MEDS: IBUPROFEN 800 MG TABLET PO SCH ×3 (06:14→21:21)
[2018-11-08 06:43] LABS: HEMATOCRIT 21.2 % (36.0-47.0); MEAN CORPUSCULAR HEMOGLOBIN 25.1 pg (27.0-33.4); MEAN CORPUSCULAR VOLUME 79 fl (80-97); PLATELET COUNT 193 10^3/uL (150-450); RED BLOOD COUNT 2.69 10^6/uL (3.72-5.28); RED CELL DISTRIBUTION WIDTH 20.7 % (11.5-14.0); WHITE BLOOD COUNT 13.2 10^3/uL (4.0-10.5)
[2018-11-08 07:01] LABS: HEMOGLOBIN 6.8 g/dL (12.0-15.5)
--- NOTE | 2018-11-08 09:53 | PDOC PROGRESS REPORT ---
Subjective-OB Progress Note for:: 11/08/18 Subjective: Doing well, no c/o, , voiding, ambulating Physical Exam (OB) Vital Signs: Temp Pulse Resp BP Pulse Ox 98.6 F 92 18 116/64 95 11/07/18 19:15 11/07/18 19:15 11/07/18 19:15 11/07/18 19:15 11/07/18 19:15 Intake & Output 11/07/18 11/08/18 11/09/18 06:59 06:59 06:59 Intake Total 550 Balance 550 - PIH/Pre-Eclampsia DTR's: 2 + Clonus: Negative Headache: Absent Epigastric Pain: No Visual Changes: No - Lochia Lochia Amount: Small 10-25 ml Lochia Color: Rubra/Red - Abdomen Description: Soft Hernia Present: No Fundal Description: Firm, Midline Fundal Height: u/u - u/2 Objective-Diagnostic Laboratory: 11/08/18 06:26 11/08/18 06:26 WBC 13.2 H RBC 2.69 L Hgb 6.8 L D Hct 21.2 L MCV 79 L MCH 25.1 L MCHC 32.0 RDW 20.7 H Plt Count 193 Assessment and Plan(PN) - Assessment and Plan (1) Anemia due to acute blood loss Is this a current diagnosis for this admission?: Yes (2) Chorioamnionitis, delivered, current hospitalization Is this a current diagnosis for this admission?: Yes (3) Delivery normal Is this a current diagnosis for this admission?: Yes - Time Spent with Patient Time with patient: Less than 15 minutes Medications reviewed and adjusted accordingly: Yes - Disposition Anticipated Discharge: Home Within: within 24 hours
[2018-11-08] MEDS: SENNOSIDES/DOCUSATE 8.6-50 MG 1 EACH TABLET PO SCH (10:50)
[2018-11-08] MEDS: FERROUS SULFATE 325 MG TABLET PO SCH ×3 (10:50→19:00)
[2018-11-08] MEDS: PRENATAL VITAMIN W DHA CAPSULE PO SCH (10:50)
[2018-11-08] MEDS: DOCUSATE SODIUM 100 MG CAPSULE PO SCH ×3 (10:50→19:00)
[2018-11-08] MEDS: FAMOTIDINE 20 MG TABLET PO SCH ×2 (10:50→21:21)
[2018-11-09] MEDS: IBUPROFEN 800 MG TABLET PO SCH ×2 (05:35→08:17)
[2018-11-09 08:09] VITALS: BP 104/56
[2018-11-09] MEDS: DOCUSATE SODIUM 100 MG CAPSULE PO SCH (10:20)
[2018-11-09] MEDS: PRENATAL VITAMIN W DHA CAPSULE PO SCH (10:20)
[2018-11-09] MEDS: FERROUS SULFATE 325 MG TABLET PO SCH (10:20)
[2018-11-09] MEDS: SENNOSIDES/DOCUSATE 8.6-50 MG 1 EACH TABLET PO SCH (10:20)
[2018-11-09] MEDS: FAMOTIDINE 20 MG TABLET PO SCH (10:20)
--- NOTE | 2018-11-09 10:50 | PDOC PROGRESS REPORT ---
Subjective-OB Progress Note for:: 11/09/18 Subjective: Doing well, on telephone during visit, baby not going home today, tolerating low H&H Physical Exam (OB) Vital Signs: Temp Pulse Resp BP Pulse Ox 98.0 F 79 18 104/56 L 100 11/09/18 10:41 11/09/18 10:41 11/09/18 10:41 11/09/18 07:24 11/09/18 10:41 Intake & Output 11/08/18 11/09/18 11/10/18 06:59 06:59 06:59 Intake Total 541 082 1400 Balance 748 061 5205 - PIH/Pre-Eclampsia DTR's: 1 + Clonus: Negative Headache: Absent Epigastric Pain: No Visual Changes: No - Lochia Lochia Amount: Scant < 10 ml Lochia Color: Rubra/Red - Abdomen Description: Soft Hernia Present: No Fundal Description: Firm, Midline Fundal Height: u/u - u/2 Objective-Diagnostic Laboratory: 11/08/18 06:26 Assessment and Plan(PN) - Assessment and Plan (1) Anemia due to acute blood loss Is this a current diagnosis for this admission?: Yes (2) Chorioamnionitis, delivered, current hospitalization Is this a current diagnosis for this admission?: Yes (3) Delivery normal Is this a current diagnosis for this admission?: Yes - Time Spent with Patient Time with patient: Less than 15 minutes Medications reviewed and adjusted accordingly: Yes - Disposition Anticipated Discharge: Home Within: within 24 hours
--- NOTE | 2018-11-09 10:53 | PDOC DISCHARGE SUMMARY ---
Final Diagnosis Discharge Date: 11/09/18 - Final Diagnosis (1) Anemia due to acute blood loss Is this a current diagnosis for this admission?: Yes (2) Chorioamnionitis, delivered, current hospitalization Is this a current diagnosis for this admission?: Yes (3) Delivery normal Is this a current diagnosis for this admission?: Yes Discharge Data - Discharge Medication Prescriptions: Ferrous Sulfate [Feosol 325 mg Tablet] 325 mg PO BID #60 tablet Home Medications: Pnv 102/Iron/Folate 1/Dss/Dha [Vitafol Fe+ Docusate Combo Pck] 1 cap PO DAILY 09/20/18 Albuterol Sulfate [Ventolin Hfa 8 gm Mdi (1 Mdi/ER Disp)] 1 puff PO PRN PRN 11/05/18 Ferrous Sulfate [Feosol 325 mg Tablet] 325 mg PO BID #60 tablet 11/09/18 Gestational Age: 41.1 Reason(s) for Admission: Induction of Labor Procedures: NST, Ultrasound Intrapartum Procedure(s): Spontaneous Vaginal Delivery Complication(s): Laceration-Vaginal, Hemorrhage-Uterine Atony Laceration-Degree: 1st - Diagnosis Test Laboratory: Temp Pulse Resp BP Pulse Ox 98.0 F 79 18 104/56 L 100 11/09/18 10:41 11/09/18 10:41 11/09/18 10:41 11/09/18 07:24 11/09/18 10:41 11/05/18 11/05/18 11/08/18 22:05 22:41 06:26 RBC 3.67 L 2.69 L Hgb 9.3 L 6.8 L D Hct 28.6 L 21.2 L Urine Opiates Screen NEGATIVE - Discharge information/Instructions Discharge Activity: Activity As Tolerated, No Lifting Over 10 Pounds, No Lifting/Push/Pulling, Pelvic Rest Discharge Diet: As Tolerated, Regular Disposition: HOME, SELF-CARE Follow up with: [facility] in: 3, Weeks
== END 2018-11-09 17:45 | disposition home or self-care (01) | DRG 805 ==
LOC: LR 21:53 → 2S 11-07 14:20
PROVIDERS: ADMIT Obstetrics & Gynecology Gynecology; ATTEND Obstetrics & Gynecology Gynecology
PROC: 4A1HXCZ Monitoring of Products of Conception, Cardiac Rate, External Approach (ICD-10-PCS; 2018-11-05)
PROC: 3E033VJ Introduction of Other Hormone into Peripheral Vein, Percutaneous Approach (ICD-10-PCS; 2018-11-06)
PROC: 10E0XZZ Delivery of Products of Conception, External Approach (ICD-10-PCS; principal; 2018-11-07)
PROC: 0HQ9XZZ Repair Perineum Skin, External Approach (ICD-10-PCS; 2018-11-07)
DX: O48.0 Post-term pregnancy (principal); O41.1230 Chorioamnionitis, third trimester, not applicable or unspecified; Z37.0 Single live birth; D62 Acute posthemorrhagic anemia; O70.0 First degree perineal laceration during delivery; O69.82X0 Labor and delivery complicated by other cord entanglement, without compression, not applicable or unspecified; O75.89 Other specified complications of labor and delivery; O90.81 Anemia of the puerperium; Z3A.41 41 weeks gestation of pregnancy
CPT/HCPCS: 36415; 80307; 81005; 85025; 85027; 86592; 86850; 86900; 86901; C1726; J0690; J2210; J2300; J2405; J2590; J3010; J3490

== ENCOUNTER 2018-11-19 18:56 | Emergency (ER) | payer MEDICAID ==
[2018-11-20] MEDS ORDERED: LIDOCAINE 2%/EPINEPHRINE INJ 20 ML VIAL INJ ONE (00:43)
--- NOTE | 2018-11-20 00:50 | ER Document Report ---
ED Skin Rash/Insect Bite/Abscs - General Chief Complaint: Abscess Stated Complaint: POSSIBLE ABSCESS Time Seen by Provider: 11/20/18 00:43 Notes: 18-year-old female presents to the emergency department for concern for abscess in the pilonidal area. She reports history of abscesses in had at least 7 in the last couple of years in the same area. She has never required treatment in the operating room. She denies any fevers, chills, nausea, or any other infectious symptoms. She denies any difficulty with bowel movements. She complains of exquisite tenderness at the site. TRAVEL OUTSIDE OF THE [place] IN LAST 30 DAYS: No COUNTRY TRAVELED TO/FROM: [place] - Related Data Allergies/Adverse Reactions: No Known Allergies Allergy (Verified 11/19/18 18:58) Past Medical History - Social History Smoking Status: Never Smoker Chew tobacco use (# tins/day): No Drug Abuse: None Family History: Hypertension Patient has suicidal ideation: No Patient has homicidal ideation: No Pulmonary Medical History: Reports: Hx Asthma Renal/ Medical History: Denies: Hx Peritoneal Dialysis Infectious Medical History: Denies: Hx MRSA Past Surgical History: Reports: Hx Inguinal Hernia - Immunizations Immunizations up to date: Yes Hx Diphtheria, Pertussis, Tetanus Vaccination: Yes Review of Systems - Review of Systems Constitutional: See HPI EENT: No symptoms reported Cardiovascular: No symptoms reported Respiratory: No symptoms reported Gastrointestinal: No symptoms reported Genitourinary: No symptoms reported Female Genitourinary: No symptoms reported Musculoskeletal: No symptoms reported Skin: See HPI Hematologic/Lymphatic: No symptoms reported Neurological/Psychological: No symptoms reported Physical Exam - Vital signs Vitals: Temp Pulse Resp BP Pulse Ox 98.8 F 89 18 114/66 97 11/19/18 19:13 11/19/18 19:13 11/19/18 19:13 11/19/18 19:13 11/19/18 19:13 - Skin Skin Temperature: Warm Skin Moisture: Dry Skin Color: Normal Skin irregularity: Abscess - Pilonidal cyst right side at the cleft of the buttock Course - Re-evaluation Re-evalutation: 11/20/18 00:46 18-year-old female presents for pilonidal cyst. She has had several in the last 2 years but has never required treatment in the operating room. She complains of severe pain at the site. Attempted to aspirate with an 18-gauge needle without success. Now we will plan to anesthetize the site locally with lidocaine with epinephrine 2% and incision and drainage. - Vital Signs Vital signs: Temp Pulse Resp BP Pulse Ox 98.8 F 89 18 114/66 97 11/19/18 19:13 11/19/18 19:13 11/19/18 19:13 11/19/18 19:13 11/19/18 19:13 Procedures - Incision and Drainage Mid- Buttock Type: Simple Anesthetic type: 2% Lidocaine mL's of anesthetic: 5 Blade size: 11 I&D procedure: Shurclens applied Incision Method: Incision made by scalpel Amount/type of drainage: 5 mL Notes: 11/20/18 01:21 Pt tolerated procedure well ' Discharge - Discharge Clinical Impression: Pilonidal abscess Condition: Good Disposition: HOME, SELF-CARE Additional Instructions: You were seen for an abscess that required drainage. Please clean this area with soap and water twice daily and apply a topical antibiotic. Dress the area after each cleaning. Please return if you develop fever, vomiting, the pain at the site worsens, you notice spreading redness from the area, or you have any other symptoms that are concerning to you.
[2018-11-20 01:32] VITALS: BP 125/78
== END 2018-11-20 01:32 | disposition home or self-care (01) ==
LOC: ER 18:56
DX: L05.01 Pilonidal cyst with abscess (principal); J45.909 Unspecified asthma, uncomplicated
CPT/HCPCS: 99282; 10080; A6266; J3490

== ENCOUNTER 2019-01-14 14:44 | Emergency (ER) | payer MEDICAID ==
--- NOTE | 2019-01-14 16:57 | ER Document Report ---
ED Medical Screen (RME) - General Chief Complaint: Vaginal Bleeding Stated Complaint: VAGINAL PAIN Time Seen by Provider: 01/14/19 16:55 Mode of Arrival: Ambulatory Information source: Patient Notes: Patient complains of dysuria that started yesterday. Patient states that she has a swollen area to the perineum that is tender to touch. Patient denies any fever. I have greeted and performed a rapid initial assessment of this patient. A comprehensive ED assessment and evaluation of the patient, analysis of test results and completion of the medical decision making process will be conducted by additional ED providers. TRAVEL OUTSIDE OF THE [place] IN LAST 30 DAYS: No COUNTRY TRAVELED TO/FROM: [place] - Related Data Allergies/Adverse Reactions: No Known Allergies Allergy (Verified 01/14/19 15:10) Past Medical History Pulmonary Medical History: Reports: Hx Asthma Renal/ Medical History: Denies: Hx Peritoneal Dialysis Infectious Medical History: Denies: Hx MRSA Past Surgical History: Reports: Hx Inguinal Hernia - Immunizations Immunizations up to date: Yes Hx Diphtheria, Pertussis, Tetanus Vaccination: Yes Physical Exam - Vital signs Vitals: Temp Pulse Resp BP Pulse Ox 98.6 F 85 16 129/76 H 100 01/14/19 15:35 01/14/19 15:35 01/14/19 15:35 01/14/19 15:35 01/14/19 15:35 - General General appearance: Appears well, Alert In distress: None Course - Vital Signs Vital signs: Temp Pulse Resp BP Pulse Ox 98.6 F 85 16 129/76 H 100 01/14/19 15:35 01/14/19 15:35 01/14/19 15:35 01/14/19 15:35 01/14/19 15:35
[2019-01-14 17:42] LABS: APPEARANCE,URINE CLEAR; BILIRUBIN,URINE NEGATIVE (NEGATIVE); COLOR,URINE YELLOW; GLUCOSE, URINE NEGATIVE (NEGATIVE); KETONES,URINE NEGATIVE (NEGATIVE); LEUKOCYTE ESTERASE,URINE NEGATIVE (NEGATIVE); NITRITE,URINE NEGATIVE (NEGATIVE); PROTEIN,URINE NEGATIVE (NEGATIVE); URINE SPECIFIC GRAVITY 1.026; UROBILINOGEN,URINE NEGATIVE mg/dL (<2.0)
[2019-01-14] MEDS ORDERED: LIDOCAINE 1% INJ-PF (10 MG/ML) 30 ML SDV INJ ONE (18:42)
--- NOTE | 2019-01-14 18:47 | ER Document Report ---
Addendum entered and electronically signed by GRACIA VARGAS PA-C 01/14/19 20:15: Discharge - Discharge Clinical Impression: Bartholin's gland abscess Condition: Stable Disposition: HOME, SELF-CARE Instructions: Bartholin Gland Cyst or Abscess ([facility]) Additional Instructions: Do not shower or bathe for 24 hours. After 24 hours you may shower but no submersion of the wound under water unless epsom salt soak. Keep the original dressing on the wound for 24 hours unless the drainage soaks through. Change the dressing daily thereafter. See your OBGYN/PCM in 2-3 days for recheck and continue direction for wound packing. Monitor for any signs of worsening pain or redness, streaks, and/or fever. Return to the ED if noticing any of the above symptoms or as needed. Take medications as directed. Prescriptions: Cephalexin Monohydrate [Keflex 500 mg Capsule] 500 mg PO TID #30 capsule Fluconazole [Diflucan] 150 mg PO ONCE PRN #1 tablet PRN Reason: Sulfamethoxazole/Trimethoprim [Bactrim Ds Tablet] 1 each PO BID #20 tablet Forms: Elevated Blood Pressure Referrals: [facility] [Provider Group] - 01/17/19 Original Note: HPI - HPI Time Seen by Provider: 01/14/19 16:55 Pain Level: 4 Notes: Patient is a 18-year-old female with no significant past medical history who presents to the emergency department complaining of possible abscess near her vaginal area that she noticed over the last day. Patient states that she has associated pain without obvious discharge. Denies drug allergies. No history of MRSA. She is eating and drinking without difficulties. She is urinating normally and having normal bowel movements. No other vaginal discharge or odor. She has no concern of STD or STI. Denies any headache, fever, neck pain, URI, sore throat, chest pain, palpitations, syncope, cough, shortness of breath, wheeze, dyspnea, abdominal pain, nausea/vomiting/diarrhea, urinary retention, dysuria, hematuria. - ROS Systems Reviewed and Negative: Yes All other systems reviewed and negative - REPRODUCTIVE Reproductive: DENIES: : - DERM Skin Color: Normal Past Medical History - General Information source: Patient - Social History Smoking Status: Never Smoker Chew tobacco use (# tins/day): No Frequency of alcohol use: None Drug Abuse: None Family History: Hypertension Patient has suicidal ideation: No Patient has homicidal ideation: No Pulmonary Medical History: Reports: Hx Asthma Renal/ Medical History: Denies: Hx Peritoneal Dialysis Infectious Medical History: Denies: Hx MRSA Past Surgical History: Reports: Hx Inguinal Hernia - Immunizations Immunizations up to date: Yes Hx Diphtheria, Pertussis, Tetanus Vaccination: Yes Vertical Provider Document - CONSTITUTIONAL Agree With Documented VS: Yes Notes: PHYSICAL EXAMINATION: accompanied by female PCT Raj Ng GENERAL: Well-appearing, well-nourished and in no acute distress. HEAD: Atraumatic, normocephalic. EYES: Pupils equal round and reactive to light, extraocular movements intact, conjunctiva are normal. ENT: Nares patent, oropharynx clear without exudates. Moist mucous membranes. EAC's clear bilaterally. TMs intact bilaterally without erythema fluid or perforation. No tonsillar hypertrophy or erythema. No sinus tenderness. NECK: Normal range of motion, supple without lymphadenopathy LUNGS: Breath sounds clear to auscultation bilaterally and equal. No wheezes rales or rhonchi. HEART: Regular rate and rhythm without murmurs ABDOMEN: Soft, nontender, nondistended abdomen. No guarding, no rebound. No masses appreciated. Normal bowel sounds present. CVA tenderness negative bilaterally. Female : No inguinal adenopathy. External genitalia without obvious abnormality aside from a fluctuant tender area to the let bartholin gland consistent with abscess of the bartholin. Musculoskeletal: FROM to passive/active. Strength 5+/5. Extremities: No cyanosis/clubbing/edema b/l. Peripheral pulses 2+. Capillary refill less than 3 seconds. NEUROLOGICAL: Normal speech, normal gait. PSYCH: Normal mood, normal affect. SKIN: see above. - INFECTION CONTROL TRAVEL OUTSIDE OF THE [place] IN LAST 30 DAYS: No COUNTRY TRAVELED TO/FROM: [facility] Course - Re-evaluation Re-evalutation: 01/14/19 19:54 Patient is an afebrile, well-hydrated, 18-year-old female who presents to the emergency department with an abscess to her left bartholin gland needing incision and drainage. Vitals are acceptable without significant tachycardia, tachypnea, or hypoxia. PE is otherwise unremarkable. Patient is nontoxic- appearing and is tolerating p.o. without difficulty. Incision and drainage was performed successfully without any complications and packing was placed. Wound dressing was placed and wound instructions reviewed. Low suspicion for any sepsis, meningitis, SJS, or other systemic emergent condition at this time. Patient to monitor symptoms for any acute changes and seek medical attention if so. Recheck with your PCM/OBGYN in 2-3 days. Return to the ED with any worsening/concerning symptoms as reviewed. Patient is in agreement. - Vital Signs Vital signs: Temp Pulse Resp BP Pulse Ox 98.6 F 85 16 129/76 H 100 01/14/19 15:35 01/14/19 15:35 01/14/19 15:35 01/14/19 15:35 01/14/19 15:35 Procedures - Incision and Drainage Bartholin Gland Time completed: 19:50 - accompanied by female ria trujillo Type: Simple Anesthetic type: 1% Lidocaine mL's of anesthetic: 6 Blade size: 11 I&D procedure: Betadine prep applied, Iodoform packing placed, Sterile dressing applied Incision Method: Incision made by scalpel Amount/type of drainage: moderate purulent Discharge - Discharge Clinical Impression: Bartholin's gland abscess Condition: Stable Disposition: HOME, SELF-CARE Instructions: Bartholin Gland Cyst or Abscess ([facility]) Additional Instructions: Do not shower or bathe for 24 hours. After 24 hours you may shower but no submersion of the wound under water unless epsom salt soak. Keep the original dressing on the wound for 24 hours unless the drainage soaks through. Change the dressing daily thereafter. See your OBGYN/PCM in 2-3 days for recheck and continue direction for wound packing. Monitor for any signs of worsening pain or redness, streaks, and/or fever. Return to the ED if noticing any of the above symptoms or as needed. Take medications as directed. Prescriptions: Cephalexin Monohydrate [Keflex 500 mg Capsule] 500 mg PO TID #30 capsule Sulfamethoxazole/Trimethoprim [Bactrim Ds Tablet] 1 each PO BID #20 tablet Forms: Elevated Blood Pressure Referrals: [facility] [Provider Group] - 01/17/19
[2019-01-14 20:18] VITALS: BP 121/80
== END 2019-01-14 20:17 | disposition home or self-care (01) ==
LOC: ER 14:44
DX: N75.1 Abscess of Bartholin's gland (principal); J45.909 Unspecified asthma, uncomplicated
CPT/HCPCS: 99283; 81025; 81001; 56420; A6266; J3490

== ENCOUNTER 2019-06-13 06:03 | Emergency (ER) | payer MEDICAID ==
[2019-06-13] MEDS ORDERED: IBUPROFEN 600 MG TABLET PO ONE (07:37)
[2019-06-13] MEDS ORDERED: ACETAMINOPHEN 325 MG TABLET PO ONE (07:37)
[2019-06-13] MEDS ORDERED: ONDANSETRON 4 MG TAB.RAPDIS PO ONE (07:37)
--- NOTE | 2019-06-13 07:43 | ER Document Report ---
ED General - General Chief Complaint: Cyst Stated Complaint: SIDE PAIN Time Seen by Provider: 06/13/19 07:16 TRAVEL OUTSIDE OF THE [place] IN LAST 30 DAYS: No COUNTRY TRAVELED TO/FROM: [facility] - [facility] Notes: Patient is a 19-year-old female with a history of recurrent pilonidal cysts who presents to the emergency department for evaluation. She states she is developed this mostly this swelling over the last 4 days. Is worse over the last 24 hours. She has had some chills, nausea, no emesis. Normal bowel movements. She is had multiple I&D's in the past. She currently puts her pain at a 5 out of 5. She states it is "worse than having babies." - Related Data Allergies/Adverse Reactions: No Known Allergies Allergy (Verified 01/14/19 15:10) Past Medical History - General Information source: Patient - Social History Smoking Status: Never Smoker Drug Abuse: None Family History: Hypertension Patient has suicidal ideation: No Patient has homicidal ideation: No Pulmonary Medical History: Reports: Hx Asthma Renal/ Medical History: Denies: Hx Peritoneal Dialysis Skin Medical History: Reports Other - pilonidal cysts Infectious Medical History: Denies: Hx MRSA Past Surgical History: Reports: Hx Inguinal Hernia - Immunizations Immunizations up to date: Yes Hx Diphtheria, Pertussis, Tetanus Vaccination: Yes Review of Systems - Review of Systems Constitutional: See HPI EENT: No symptoms reported Cardiovascular: No symptoms reported Respiratory: No symptoms reported Gastrointestinal: See HPI Genitourinary: No symptoms reported Musculoskeletal: No symptoms reported Skin: See HPI Neurological/Psychological: No symptoms reported Physical Exam - Vital signs Vitals: Temp Pulse Resp BP Pulse Ox 98.9 F 80 20 136/95 H 99 06/13/19 06:05 06/13/19 06:05 06/13/19 06:05 06/13/19 06:05 06/13/19 06:05 - Notes Notes: Vital signs reviewed, please refer to chart. Head is normocephalic, atraumatic. Pupils equal round, reactive to light. Neck is supple without meningismus. Heart is regular rate and rhythm. Lungs are clear to auscultation bilaterally. Examination the gluteal region yields a 2 x 4 cm area of fluctuance on the right aspect of the proximal gluteal crease, consistent with a pilonidal abscess. It is markedly tender to palpation. Some mild associated calor but no erythema, surrounding induration. Course - Re-evaluation Re-evalutation: 06/13/19 07:45 Patient presents emergency department for evaluation. She clearly has a pilonidal cyst. Need for drainage was explained to the patient, I&D set of ordered. Patient is here by herself, given Tylenol and Motrin. Also given Zofran for nausea. Procedure will be performed. 06/13/19 08:46 Incision and drainage performed successfully. No signs of surrounding cellulitis at this time. We will send home with anti-inflammatories, I do not see a current need for antibiotics. She is to return to the ED with worsening. - Vital Signs Vital signs: Temp Pulse Resp BP Pulse Ox 98.9 F 80 20 136/95 H 99 06/13/19 06:05 06/13/19 06:05 06/13/19 06:05 06/13/19 06:05 06/13/19 06:05 Procedures - Incision and Drainage Right Buttock Type: Simple Anesthetic type: 1% Lidocaine mL's of anesthetic: 4 Blade size: 11 I&D procedure: Betadine prep applied, Chlorprep applied Incision Method: Incision made by scalpel Discharge - Discharge Clinical Impression: Pilonidal cyst with abscess Condition: Stable Disposition: HOME, SELF-CARE Instructions: Abscess ([facility]), Post Incision and Drainage Additional Instructions: Keep wound clean with soap and water. Bulky dressings to absorb any discharge. Follow-up with primary care next week. If you develop fevers, increased pain, vomiting, or any other new or concerning symptoms, return immediately to the emergency department for evaluation.
[2019-06-13] MEDS: LIDOCAINE 1% INJ-PF (10 MG/ML) 30 ML SDV INJ ONE ×2 (08:14→08:42)
[2019-06-13 09:15] VITALS: BP 130/82
== END 2019-06-13 09:15 | disposition home or self-care (01) ==
LOC: ER 06:03
DX: L05.01 Pilonidal cyst with abscess (principal)
CPT/HCPCS: 99283; 10080; J3490 ×2; S0119

== ENCOUNTER 2019-11-22 11:04 | Emergency (ER) | payer MEDICAID ==
[2019-11-22 11:07] VITALS: BP 125/85
[2019-11-22] MEDS ORDERED: IBUPROFEN 800 MG TABLET PO ONE (11:18)
[2019-11-22] MEDS ORDERED: HYDROCODONE/ACETAMINOPHEN 5-325 MG TABLET PO ONE (11:18)
[2019-11-22] MEDS ORDERED: LIDOCAINE 5% (700 MG) TRANSDERMAL ADH..PATCH TP ONE (11:18)
--- NOTE | 2019-11-22 11:21 | ER Document Report ---
HPI - HPI Patient complains to provider of: Back pain Time Seen by Provider: 11/22/19 11:12 Onset: Other - 2 days Onset/Duration: Persistent Quality of pain: Achy Pain Level: 1 Context: Patient presents complaint of low back pain for the past 2 days. Patient denies any injury or fever. Patient denies any urinary retention or incontinence. Patient denies any radiculopathy or paresthesia. Associated Symptoms: denies: Fever, Nausea, Vomiting Exacerbated by: Movement, Walking Relieved by: Denies Similar symptoms previously: No Recently seen / treated by doctor: No - ROS ROS below otherwise negative: Yes Systems Reviewed and Negative: Yes All other systems reviewed and negative - CONSTITUTIONAL Constitutional: DENIES: Fever, Chills - NEURO Neurology: DENIES: Weakness - GASTROINTESTINAL Gastrointestinal: DENIES: Nausea - REPRODUCTIVE Reproductive: DENIES: : - MUSCULOSKELETAL Musculoskeletal: REPORTS: Back Pain. DENIES: Extremity pain - DERM Skin Color: Normal Skin Problems: None Past Medical History - General Information source: Patient - Social History Smoking Status: Current Every Day Smoker Frequency of alcohol use: None Drug Abuse: None Occupation: [employer] center Family History: Hypertension Patient has suicidal ideation: No Patient has homicidal ideation: No Pulmonary Medical History: Reports: Hx Asthma Renal/ Medical History: Denies: Hx Peritoneal Dialysis Infectious Medical History: Denies: Hx MRSA Surgical Hx: Negative Past Surgical History: Reports: Hx Inguinal Hernia - Immunizations Immunizations up to date: Yes Hx Diphtheria, Pertussis, Tetanus Vaccination: Yes Vertical Provider Document - CONSTITUTIONAL Agree With Documented VS: Yes Exam Limitations: No Limitations Notes: PHYSICAL EXAMINATION: GENERAL: Well-appearing, well-nourished and in no acute distress. HEAD: Atraumatic, normocephalic. EYES: sclera clear, anicteric, conjunctiva are normal. ENT: nares patent, Moist mucous membranes. NECK: Normal range of motion LUNGS: respirations unlabored HEART: Regular rate and rhythm without murmurs EXTREMITIES: Normal range of motion, no pitting or edema. No cyanosis. Gait normal, pt ambulates without difficulty BACK: Lower lumbar midline tenderness, no deformities or step-offs. No CVA tenderness. NEUROLOGICAL: Cranial nerves grossly intact. Normal speech, normal gait. No saddle anesthesia. PSYCH: Normal mood, normal affect. SKIN: Warm, Dry, normal turgor, no rashes or lesions noted. - INFECTION CONTROL TRAVEL OUTSIDE OF THE [place] IN LAST 30 DAYS: No Course - Re-evaluation Re-evalutation: 11/22/19 11:19 The patient presents with low back pain without signs of spinal cord compr ession, cauda equina syndrome, infection, aneurysm, or other serious etiology. The patient is neurologically intact. Given the extremely risk of these diagnoses further testing and evaluation for these possibilities does not appear to be indicated at this time. Patient has been instructed to return if the symptoms worsen or change in any way. - Vital Signs Vital signs: Temp Pulse Resp BP Pulse Ox 98.5 F 94 16 125/85 99 11/22/19 11:06 11/22/19 11:06 11/22/19 11:06 11/22/19 11:06 11/22/19 11:06 Discharge - Discharge Clinical Impression: Low back pain Qualifiers: Chronicity: unspecified Back pain laterality: unspecified Sciatica presence: without sciatica Qualified Code(s): M54.5 - Low back pain Condition: Stable Disposition: HOME, SELF-CARE Instructions: Ice Packs ([facility]), Low Back Pain ([facility]) Additional Instructions: Return immediately for any new or worsening symptoms Followup with your primary care provider, call tomorrow to make a followup appointment Avoid heavy lifting Prescriptions: Lidocaine [Lidoderm 5% (700 mg) Transdermal Patch] 1 patch TP DAILY PRN #10 adh..patch PRN Reason: Naproxen [Naprosyn 250 Nmg Tablet] 1 tab PO BID #14 tablet Methocarbamol [Robaxin 500 Mg Tablet] 500 mg PO QID PRN #20 tablet PRN Reason: Forms: Return to Work Referrals: [facility] [Provider Group] - Follow up as needed [facility] [Provider Group] - Follow up as needed [facility] [Provider Group] - Follow up as needed
== END 2019-11-22 11:32 | disposition home or self-care (01) ==
LOC: ER 11:04
DX: M54.5 Low back pain (principal); F17.200 Nicotine dependence, unspecified, uncomplicated; J45.909 Unspecified asthma, uncomplicated
CPT/HCPCS: 99283; J3490 ×2

== ENCOUNTER 2020-02-10 11:45 | Emergency (ER) | payer SELFPAY ==
[2020-02-10] MEDS ORDERED: NORMAL SALINE 1000 ML 1,000 ML IV ONE (12:31)
--- NOTE | 2020-02-10 12:33 | ER Document Report ---
ED General - General Chief Complaint: Abdominal Pain Stated Complaint: ABDOMINAL PAIN Time Seen by Provider: 02/10/20 11:56 TRAVEL OUTSIDE OF THE [place] IN LAST 30 DAYS: No - HPI Notes: Patient is a 19-year-old female presents emergency department for evaluation of abdominal pain. She states she has had a lower abdominal pain for about a week. Today it started in the higher abdomen it is worsened with deep breaths. She denies any fevers or chills. She did have some nausea intermittently, but no emesis. She has been eating and drinking normally. Normal bowel movements. Normal urination. No vaginal discharge. She also states she could be , but she is not late for her current menstrual period. - Related Data Allergies/Adverse Reactions: kiwi Allergy (Verified 02/10/20 12:56) maraschino cherries Allergy (Uncoded 02/10/20 12:03) Home Medications: None Past Medical History - General Information source: Patient - Social History Smoking Status: Current Every Day Smoker Frequency of alcohol use: None Drug Abuse: None Family History: Hypertension Patient has suicidal ideation: No Patient has homicidal ideation: No Pulmonary Medical History: Reports: Hx Asthma Renal/ Medical History: Denies: Hx Peritoneal Dialysis Infectious Medical History: Denies: Hx MRSA Past Surgical History: Reports: Hx Inguinal Hernia - Immunizations Immunizations up to date: Yes Hx Diphtheria, Pertussis, Tetanus Vaccination: Yes Review of Systems - Review of Systems Gastrointestinal: See HPI -: Yes All other systems reviewed and negative Physical Exam - Vital signs Vitals: Temp Pulse Resp BP Pulse Ox 99.7 F 106 H 16 108/75 98 02/10/20 11:50 02/10/20 11:50 02/10/20 11:50 02/10/20 11:50 02/10/20 11:50 - Notes Notes: Vital signs reviewed, please refer to chart. Head is normocephalic, atraumatic. Pupils equal round, reactive to light. Neck is supple without meningismus. Heart is regular rate and rhythm. Lungs are clear to auscultation bilaterally. Abdomen is soft, nontender, normoactive bowel sounds throughout. Extremities without cyanosis, clubbing. Posterior calves are nontender. Peripheral pulses are equal. Skin is warm and dry. Patient is awake, alert, neurological exam is nonfocal. Course - Re-evaluation Re-evalutation: 02/10/20 12:32 Patient presents emergency department for evaluation. Laboratory investigations and IV fluids are ordered. Patient is stable at this time, we will continue to monitor. 02/10/20 13:10 Patient's laboratory investigations and urinalysis failed to reveal any significant abnormalities. Patient is stable at this time. She is told to drink clear liquids, bland diet, follow-up with primary care in 1 to 2 days. She is to return to the ER with worsening or new concerning symptoms of any sort. 02/10/20 13:21 test is negative. - Vital Signs Vital signs: Temp Pulse Resp BP Pulse Ox 99.7 F 106 H 16 108/75 98 02/10/20 11:50 02/10/20 11:50 02/10/20 11:50 02/10/20 11:50 02/10/20 11:50 - Laboratory Result Diagrams: 02/10/20 12:26 02/10/20 12:26 Laboratory results interpreted by me: 02/10/20 02/10/20 12:26 12:26 Hgb 11.8 L Hct 34.5 L RDW 16.0 H Sodium 136.7 L Discharge - Discharge Clinical Impression: Epigastric abdominal pain Condition: Stable Disposition: HOME, SELF-CARE Instructions: Abdominal Pain ([facility]) Additional Instructions: Your labs today failed to reveal any significant abnormality. No clear reason was identified for your abdominal pain, and your test was negative. Rest. Stay well-hydrated. [place] diet as tolerated. Follow-up with your primary care provider in 1 to 2 days. Return to the emergency department with worsening or new concerning symptoms of any sort.
[2020-02-10 12:43] LABS: ABSOLUTE BASOPHILS # (AUTO) 0.1 10^3/uL (0.0-0.2); ABSOLUTE EOSINOPHILS # (AUTO) 0.3 10^3/uL (0.0-0.6); ABSOLUTE LYMPHOCYTES (AUTO) 2.8 10^3/uL (0.5-4.7); ABSOLUTE MONOCYTES (AUTO) 0.6 10^3/uL (0.1-1.4); ABSOLUTE NEUT (AUTO) 4.1 10^3/uL (1.7-8.2); EOSINOPHILS % (AUTO) 3.6 % (0-6); HEMATOCRIT 34.5 % (36.0-47.0); HEMOGLOBIN 11.8 g/dL (12.0-15.5); LYMPHOCYTES % (AUTO) 35.7 % (13-45); MEAN CORPUSCULAR HEMOGLOBIN 28.8 pg (27.0-33.4); MEAN CORPUSCULAR HGB CONC 34.3 g/dL (32.0-36.0); MEAN CORPUSCULAR VOLUME 84 fl (80-97); MONOCYTES % (AUTO) 7.3 % (3-13); PLATELET COUNT 370 10^3/uL (150-450); RED BLOOD COUNT 4.12 10^6/uL (3.72-5.28); SEGMENTED NEUTROPHILS % (AUTO) 52.4 % (42-78); TOTAL CELLS COUNTED % (AUTO) 100 %; WHITE BLOOD COUNT 7.8 10^3/uL (4.0-10.5)
[2020-02-10 12:58] LABS: APPEARANCE,URINE CLEAR; BILIRUBIN,URINE NEGATIVE (NEGATIVE); COLOR,URINE STRAW; GLUCOSE, URINE NEGATIVE (NEGATIVE); KETONES,URINE NEGATIVE (NEGATIVE); LEUKOCYTE ESTERASE,URINE NEGATIVE (NEGATIVE); NITRITE,URINE NEGATIVE (NEGATIVE); PROTEIN,URINE NEGATIVE (NEGATIVE); URINE SPECIFIC GRAVITY 1.005; UROBILINOGEN,URINE NEGATIVE mg/dL (<2.0)
[2020-02-10 13:05] LABS: ALBUMIN 4.5 g/dL (3.5-5.0); ALKALINE PHOSPHATASE 89 U/L (38-126); ANION GAP 9 (5-19); ASPARTATE AMINO TRANSFERASE 23 U/L (14-36); BILIRUBIN,DIRECT 0.2 mg/dL (0.0-0.4); BILIRUBIN,TOTAL 0.3 mg/dL (0.2-1.3); BLOOD UREA NITROGEN 9 mg/dL (7-20); CALCIUM 9.7 mg/dL (8.4-10.2); CARBON DIOXIDE 24 mmol/L (22-30); CHLORIDE 104 mmol/L (98-107); GLUCOSE 95 mg/dL (75-110); POTASSIUM 4.1 mmol/L (3.6-5.0)
[2020-02-10 15:33] VITALS: BP 110/60
== END 2020-02-10 13:30 | disposition home or self-care (01) ==
LOC: ER 11:45
DX: R10.13 Epigastric pain (principal); R10.30 Lower abdominal pain, unspecified; F17.200 Nicotine dependence, unspecified, uncomplicated
CPT/HCPCS: 99284; 96360; 36415; 83690; 84703; 85025; 80053; 81001; J7030

== ENCOUNTER 2020-03-25 11:34 | Emergency (ER) | payer SELFPAY ==
[2020-03-25] MEDS ORDERED: ONDANSETRON 4 MG TAB.RAPDIS PO ONE (12:10)
--- NOTE | 2020-03-25 12:12 | ER Document Report ---
ED Medical Screen (RME) - General Stated Complaint: VOMITING Time Seen by Provider: 03/25/20 12:08 Mode of Arrival: Ambulatory Information source: Patient Notes: 20-year-old female presents to the emergency department with reports she has been vomiting all day and all night. Reports it started at 10 PM last night. She reports today she has not had anything to eat or drink and is dry heaving. Denies fever diarrhea. Reports she did started her menses today. Reports her stomach does not really hurt. No other family members ill. I have greeted and performed a rapid initial assessment of this patient. A co mprehensive ED assessment and evaluation of the patient, analysis of test results and completion of the medical decision making process will be conducted by additional ED providers. TRAVEL OUTSIDE OF THE [place] IN LAST 30 DAYS: No - Related Data Allergies/Adverse Reactions: kiwi Allergy (Verified 02/10/20 12:56) maraschino cherries Allergy (Uncoded 02/10/20 12:03) Past Medical History Pulmonary Medical History: Reports: Hx Asthma Renal/ Medical History: Denies: Hx Peritoneal Dialysis Infectious Medical History: Denies: Hx MRSA Past Surgical History: Reports: Hx Inguinal Hernia - Immunizations Immunizations up to date: Yes Hx Diphtheria, Pertussis, Tetanus Vaccination: Yes Physical Exam - Vital signs Vitals: Temp Pulse Resp BP Pulse Ox 98.7 F 90 16 123/81 98 03/25/20 11:40 03/25/20 11:40 03/25/20 11:40 03/25/20 11:40 03/25/20 11:40 Course - Vital Signs Vital signs: Temp Pulse Resp BP Pulse Ox 98.7 F 90 16 123/81 98 03/25/20 11:40 03/25/20 11:40 03/25/20 11:40 03/25/20 11:40 03/25/20 11:40
[2020-03-25 12:43] LABS: ABSOLUTE BASOPHILS # (AUTO) 0.1 10^3/uL (0.0-0.2); ABSOLUTE EOSINOPHILS # (AUTO) 0.2 10^3/uL (0.0-0.6); ABSOLUTE LYMPHOCYTES (AUTO) 2.4 10^3/uL (0.5-4.7); ABSOLUTE MONOCYTES (AUTO) 0.4 10^3/uL (0.1-1.4); EOSINOPHILS % (AUTO) 3.6 % (0-6); HEMATOCRIT 32.9 % (36.0-47.0); HEMOGLOBIN 11.1 g/dL (12.0-15.5); LYMPHOCYTES % (AUTO) 48.2 % (13-45); MEAN CORPUSCULAR HEMOGLOBIN 27.9 pg (27.0-33.4); MEAN CORPUSCULAR HGB CONC 33.8 g/dL (32.0-36.0); MEAN CORPUSCULAR VOLUME 83 fl (80-97); MONOCYTES % (AUTO) 7.3 % (3-13); PLATELET COUNT 393 10^3/uL (150-450); RED BLOOD COUNT 3.97 10^6/uL (3.72-5.28); RED CELL DISTRIBUTION WIDTH 15.5 % (11.5-14.0); SEGMENTED NEUTROPHILS % (AUTO) 39.9 % (42-78); TOTAL CELLS COUNTED % (AUTO) 100 %
[2020-03-25 12:45] LABS: APPEARANCE,URINE CLEAR; BILIRUBIN,URINE NEGATIVE (NEGATIVE); COLOR,URINE YELLOW; GLUCOSE, URINE NEGATIVE (NEGATIVE); KETONES,URINE NEGATIVE (NEGATIVE); LEUKOCYTE ESTERASE,URINE NEGATIVE (NEGATIVE); NITRITE,URINE NEGATIVE (NEGATIVE); PROTEIN,URINE NEGATIVE (NEGATIVE); URINE SPECIFIC GRAVITY 1.019; UROBILINOGEN,URINE NEGATIVE mg/dL (<2.0)
[2020-03-25 13:09] LABS: ALBUMIN 4.5 g/dL (3.5-5.0); ALKALINE PHOSPHATASE 78 U/L (38-126); ANION GAP 10 (5-19); ASPARTATE AMINO TRANSFERASE 24 U/L (14-36); BILIRUBIN,TOTAL 0.1 mg/dL (0.2-1.3); BLOOD UREA NITROGEN 12 mg/dL (7-20); CALCIUM 10.1 mg/dL (8.4-10.2); CARBON DIOXIDE 26 mmol/L (22-30); CHLORIDE 103 mmol/L (98-107); GLUCOSE 96 mg/dL (75-110); POTASSIUM 4.6 mmol/L (3.6-5.0); TOTAL PROTEIN 8.1 g/dL (6.3-8.2)
--- NOTE | 2020-03-25 13:20 | ER Document Report ---
ED GI/ - General Chief Complaint: Vomiting Stated Complaint: VOMITING Time Seen by Provider: 03/25/20 12:08 Primary Care Provider: [facility] [Provider Group] - Follow up as needed [facility] [Provider Group] - Follow up as needed Mode of Arrival: Ambulatory Notes: Patient is a 20-year-old female who presents the emergency department with a chief complaint of nausea and vomiting. Her symptoms started last night. Patient states that she has not been able to keep anything down and continues to vomit this morning. Patient denies any pain, fever, body aches, chills, or any other symptoms. States that she started her menstrual cycle today. Denies any vaginal discharge prior to starting her menstrual cycle. Denies any dysuria. Denies any past medical history. Does not take any medication. TRAVEL OUTSIDE OF THE [place] IN LAST 30 DAYS: No - Related Data Allergies/Adverse Reactions: kiwi Allergy (Verified 03/25/20 13:15) maraschino cherries Allergy (Uncoded 03/25/20 13:15) Home Medications: Allergy medications Past Medical History - General Information source: Patient - Social History Smoking Status: Current Every Day Smoker Frequency of alcohol use: None Drug Abuse: None Family History: Hypertension Patient has homicidal ideation: No Pulmonary Medical History: Reports: Hx Asthma Renal/ Medical History: Denies: Hx Peritoneal Dialysis Infectious Medical History: Denies: Hx MRSA Past Surgical History: Reports: Hx Inguinal Hernia - Immunizations Immunizations up to date: Yes Hx Diphtheria, Pertussis, Tetanus Vaccination: Yes Review of Systems - Review of Systems Notes: REVIEW OF SYSTEMS: CONSTITUTIONAL : Denies recent illness. Denies recent unintentional weight loss. Denies fever, chills, or sweats. EENT: Denies eye, ear, throat, or mouth pain, discharge, or symptoms. Denies nasal or sinus congestion. CARDIOVASCULAR: Denies chest pain. RESPIRATORY: Denies shortness of breath, cough, congestion, difficulty breathing, or wheezing. GASTROINTESTINAL: See HPI. GENITOURINARY: Denies difficulty urinating, burning, blood in urine, urgency or frequency. MUSCULOSKELETAL: Denies neck and back pain. Denies joint pain or swelling. SKIN: Denies rash, itchiness, or lesions HEMATOLOGIC : Denies easy bruising or bleeding. LYMPHATIC: Denies swollen, painful, enlarged glands. NEUROLOGICAL: Denies no numbness or tingling denies weakness. Denies headache. Denies altered mental status. Denies alteration in speech. PSYCHIATRIC: Denies stress, anxiety, alteration in sleep patterns, or depres konstantin. All other systems reviewed and negative. Physical Exam - Vital signs Vitals: Temp Pulse Resp BP Pulse Ox 98.7 F 90 16 123/81 98 03/25/20 11:40 03/25/20 11:40 03/25/20 11:40 03/25/20 11:40 03/25/20 11:40 - Notes Notes: PHYSICAL EXAMINATION: GENERAL: Appears well, healthy, well-nourished, no acute distress. HEAD: Normocephalic, atraumatic. EYES: PERRL, conjunctiva normal, all extraocular movements intact, sclera nonicteric ENT: Moist mucous membranes. NECK: Supple, no noticeable swelling, redness, rash. Normal range of motion. LUNGS: Equal breath sounds bilaterally and clear to auscultation. No wheezes rales or rhonchi. CARDIOVASCULAR: S1-S2, regular rate, regular rhythm. Radial pulses 2+, normal. ABDOMEN: Normoactive bowel sounds. Soft, nontender, no guarding, no rebound tenderness, and no masses palpated. EXTREMITIES: Normal strength and range of motion, no pitting or edema. No cyanosis. NEUROLOGICAL: Moves all extremities upon command. Strength 5/5 in all extremities. PSYCH: Normal mood, normal affect. SKIN: Warm, dry. No rash, lesions, ulcerations noted. Normal skin turgor. Course - Re-evaluation Re-evalutation: 03/25/20 13:21 Chemistries are unremarkable. I added a lipase to check for pancreatitis. Hemoglobin is 11.1 and hematocrit is 32.9. This is stable from her previous visit on February 09 of this year. Urinalysis shows a large amount of blood, but patient is currently on her menstrual cycle. hCG is negative. Patient just received Zofran. Will reassess patient after lipase is back and see if she is able to tolerate crackers. 03/25/20 13:53 Lipase is unremarkable. Patient states that she feels better after receiving Zofran. Abdominal exam is benign. I have a low suspicion for appendicitis, pancreatitis, bowel obstruction, mesenteric ischemia, or any life-threatening etiology at this time. Patient will follow up with her primary care provider. She will be sent home with Zofran. Follow-up precautions were given. Verbal discharge instructions were given to the patient. They verbalized understanding. They are stable for discharge. - Vital Signs Vital signs: Temp Pulse Resp BP Pulse Ox 98.7 F 90 16 123/81 98 03/25/20 12:08 03/25/20 11:40 03/25/20 11:40 03/25/20 11:40 03/25/20 11:40 - Laboratory Result Diagrams: 03/25/20 12:22 03/25/20 12:22 Laboratory results interpreted by me: 03/25/20 03/25/20 03/25/20 12:22 12:22 12:22 Hgb 11.1 L Hct 32.9 L RDW 15.5 H Lymph % (Auto) 48.2 H Seg Neutrophils % 39.9 L Total Bilirubin 0.1 L Urine Blood LARGE H Discharge - Discharge Clinical Impression: Vomiting Qualifiers: Vomiting type: unspecified Vomiting Intractability: unspecified Nausea presence: with nausea Qualified Code(s): R11.2 - Nausea with vomiting, unsp ecified Condition: Stable Disposition: HOME, SELF-CARE Instructions: Antinausea Medication ([facility]), Viral Syndrome ([facility]), Vomiting ([facility]) Additional Instructions: You were seen department for vomiting. Your labs and physical exam are very reassuring. Take Zofran as needed for nausea or vomiting. Follow-up with your primary care provider in regards to this visit. Prescriptions: Ondansetron [Zofran Odt 4 mg Tablet] 1 - 2 tab PO Q4H PRN #15 tab.rapdis PRN Reason: For Nausea/Vomiting Forms: Return to Work Referrals: [facility] [Provider Group] - Follow up as needed [facility] [Provider Group] - Follow up as needed
[2020-03-25 14:09] VITALS: BP 113/85
== END 2020-03-25 14:09 | disposition home or self-care (01) ==
LOC: ER 11:34
DX: R11.2 Nausea with vomiting, unspecified (principal); F17.200 Nicotine dependence, unspecified, uncomplicated
CPT/HCPCS: 99283; 36415; 83690; 85025; 81025; 80053; 81001; S0119

== ENCOUNTER 2020-05-30 10:53 | Emergency (ER) | payer SELFPAY ==
--- NOTE | 2020-05-30 12:36 | ER Document Report ---
ED General - General Chief Complaint: Dizziness Stated Complaint: DIZZINESS/SHORTNESS OF BREATH Notes: Patient is a 20-year-old -[place] female with a past medical history of asthma as a child who presents the emergency department with a chief complaint of dizziness and shortness of breath that occurred while at work today. She states it was sudden in onset. [place] like she was going to "faint". States it was quickly fleeting. Reports it was associated with a sensation of shortness of breath. She states the dizziness and shortness of breath have since passed and not returned but now she has a sensation of nausea. She denies any other pain or complaints at this time. No chest pain or further shortness of breath. No abdominal pain no vomiting or diarrhea. No headache or fever. No recent travel or known sick contacts. TRAVEL OUTSIDE OF THE [place] IN LAST 30 DAYS: No - Related Data Allergies/Adverse Reactions: kiwi Allergy (Verified 05/30/20 11:49) maraschino cherries Allergy (Uncoded 05/30/20 11:49) Past Medical History - Social History Smoking Status: Current Some Day Smoker Frequency of alcohol use: Occasional Family History: Hypertension Patient has homicidal ideation: No Pulmonary Medical History: Reports: Hx Asthma Renal/ Medical History: Denies: Hx Peritoneal Dialysis Infectious Medical History: Denies: Hx MRSA Past Surgical History: Reports: Hx Inguinal Hernia - Immunizations Immunizations up to date: Yes Hx Diphtheria, Pertussis, Tetanus Vaccination: Yes Review of Systems - Review of Systems Notes: Per HPI Physical Exam - Vital signs Vitals: Temp Pulse Resp BP Pulse Ox 98.9 F 89 16 112/85 99 05/30/20 11:18 05/30/20 11:18 05/30/20 11:18 05/30/20 11:18 05/30/20 11:18 - General General appearance: Appears well, Alert In distress: None - HEENT Head: Normocephalic, Atraumatic Eyes: Normal Conjunctiva: Normal Extraocular movements intact: Yes Eyelashes: Normal Pupils: PERRL Ears: Normal External canal: Normal Tympanic membrane: Normal Sinus: Normal Nasal: Normal Mouth/Lips: Normal Mucous membranes: Normal Pharynx: Normal Neck: Normal - Respiratory Respiratory status: No respiratory distress Chest status: Nontender Breath sounds: Normal Chest palpation: Normal - Cardiovascular Rhythm: Regular Heart sounds: Normal auscultation - Abdominal Inspection: Normal Distension: No distension Bowel sounds: Normal Tenderness: Nontender Organomegaly: No organomegaly - Extremities General upper extremity: Normal inspection, Nontender, Normal color, Normal ROM, Normal temperature General lower extremity: Normal inspection, Nontender, Normal color, Normal ROM, Normal temperature, Normal weight bearing. No: Nils's sign - Neurological Neuro grossly intact: Yes Cognition: Normal Orientation: AAOx4 Rosa Coma Scale Eye Opening: Spontaneous Rosa Coma Scale Verbal: Oriented [place] Coma Scale Motor: Obeys Commands Rosa Coma Scale Total: 15 Speech: Normal Cranial nerves: Normal Additional motor exam normals: Equal circulator - Psychological Associated symptoms: Normal affect, Normal mood - Skin Skin Temperature: Warm Skin Moisture: Dry Skin Color: Normal Course - Re-evaluation Re-evalutation: 05/30/20 14:28 EK. Sinus rhythm at 73 bpm. Normal intervals. Normal axis. No STEMI. Interpreted by ED attending. 05/30/20 15:17 Patient's work-up unremarkable at this point. Discussed with parents to need urinalysis. She states she just urinated prior to my request. She states she does not have any urinary symptoms and does not wish to have a urine testing done at this time. We discussed the risks of missing potentially diagnosable conditions from urinalysis that may be related to her current presentation. She verbalized understanding but stated that she felt fine her nausea and all other symptoms have resolved. She states the only reason she really came here today is because her job told her that she must be evaluated prior to returning. She states that she is eager for discharge and does not wish to have any other testing at this time. She is of sound mind and mental capacity to make informed decision. She is aware that she is free to return here at any time to continue her care. I discussed with her the importance of outpatient follow-up and advised that she return here any ER immediately with any new, persistent or worsening symptoms. She verbalized understood and agreed. - Vital Signs Vital signs: Temp Pulse Resp BP Pulse Ox 98.9 F 86 18 118/68 98 05/30/20 11:18 05/30/20 12:07 05/30/20 12:07 05/30/20 12:07 05/30/20 12:07 - Laboratory Result Diagrams: 05/30/20 12:47 05/30/20 12:47 Laboratory results interpreted by me: 05/30/20 05/30/20 12:47 12:47 Hgb 10.9 L Hct 32.8 L MCH 26.5 L RDW 16.4 H Lymph % (Auto) 45.7 H Sodium 136.8 L Creatine Kinase 174 H Discharge - Discharge Clinical Impression: transient dizziness, Nausea Condition: Stable Disposition: HOME, SELF-CARE Instructions: Dizziness ([facility]) Additional Instructions: Follow-up with your regular doctor in 2 to 3 days for reevaluation. Return here or any ER immediately with any new, persistent or worsening symptoms. Forms: Return to Work
[2020-05-30] MEDS ORDERED: ONDANSETRON 4 MG TAB.RAPDIS PO ONE (12:50)
[2020-05-30 12:58] LABS: ABSOLUTE BASOPHILS # (AUTO) 0.1 10^3/uL (0.0-0.2); ABSOLUTE EOSINOPHILS # (AUTO) 0.2 10^3/uL (0.0-0.6); ABSOLUTE LYMPHOCYTES (AUTO) 2.5 10^3/uL (0.5-4.7); ABSOLUTE MONOCYTES (AUTO) 0.3 10^3/uL (0.1-1.4); ABSOLUTE NEUT (AUTO) 2.4 10^3/uL (1.7-8.2); EOSINOPHILS % (AUTO) 3.4 % (0-6); HEMATOCRIT 32.8 % (36.0-47.0); HEMOGLOBIN 10.9 g/dL (12.0-15.5); LYMPHOCYTES % (AUTO) 45.7 % (13-45); MEAN CORPUSCULAR HEMOGLOBIN 26.5 pg (27.0-33.4); MEAN CORPUSCULAR VOLUME 80 fl (80-97); MONOCYTES % (AUTO) 5.6 % (3-13); PLATELET COUNT 384 10^3/uL (150-450); RED CELL DISTRIBUTION WIDTH 16.4 % (11.5-14.0); SEGMENTED NEUTROPHILS % (AUTO) 44.3 % (42-78); TOTAL CELLS COUNTED % (AUTO) 100 %; WHITE BLOOD COUNT 5.5 10^3/uL (4.0-10.5)
[2020-05-30 13:14] LABS: INTERNATIONAL RATION (INR) 0.98
[2020-05-30 13:15] LABS: PARTIAL THROMBOPLASTIN TIME 30.4 SEC (23.5-35.8)
[2020-05-30 13:23] LABS: ALBUMIN 4.6 g/dL (3.5-5.0); ALKALINE PHOSPHATASE 74 U/L (38-126); ANION GAP 9 (5-19); ASPARTATE AMINO TRANSFERASE 29 U/L (14-36); BILIRUBIN,TOTAL 0.2 mg/dL (0.2-1.3); BLOOD UREA NITROGEN 8 mg/dL (7-20); CARBON DIOXIDE 25 mmol/L (22-30); CHLORIDE 103 mmol/L (98-107); CREATINE KINASE 174 U/L (30-135); GLUCOSE 96 mg/dL (75-110); POTASSIUM 4.6 mmol/L (3.6-5.0); TOTAL PROTEIN 8.1 g/dL (6.3-8.2)
--- NOTE | 2020-05-30 14:18 | RADIOLOGY REPORT (SQ) ---
EXAM DESCRIPTION: CHEST SINGLE VIEW IMAGES COMPLETED DATE/TIME: 05/30/2020 2:09 pm REASON FOR STUDY: dizzy sob COMPARISON: 06/08/2018 EXAM PARAMETERS: NUMBER OF VIEWS: One view. TECHNIQUE: Single frontal radiographic view of the chest acquired. RADIATION DOSE: NA LIMITATIONS: None. FINDINGS: LUNGS AND PLEURA: No opacities, masses or pneumothorax. No pleural effusion. MEDIASTINUM AND HILAR STRUCTURES: No masses. Contour normal. HEART AND VASCULAR STRUCTURES: Heart normal in size. Normal vasculature. BONES: No acute findings. HARDWARE: None in the chest. OTHER: No other significant finding. IMPRESSION: NO ACUTE RADIOGRAPHIC FINDING IN THE CHEST. TECHNICAL DOCUMENTATION: JOB ID: [id number] [employer]- All Rights Reserved Reading location - IP/workstation name: [email or web address]
--- NOTE | 2020-05-30 14:30 | EKG REPORT ---
SEVERITY:- NORMAL ECG - SINUS RHYTHM : Confirmed by: Scarlett Dean MD 30-May-2020 14:29:42
[2020-05-30 15:39] VITALS: BP 119/81
== END 2020-05-30 15:39 | disposition home or self-care (01) ==
LOC: ER 10:53
DX: R42 Dizziness and giddiness (principal); R11.0 Nausea; F17.200 Nicotine dependence, unspecified, uncomplicated; J45.909 Unspecified asthma, uncomplicated; Z91.018 Allergy to other foods
CPT/HCPCS: 93005; 99284; 36415; 82550; 84703; 85025; 85610; 85730; 80053; 84484; 71045; 93010; S0119

== ENCOUNTER 2020-10-22 14:27 | Emergency (ER) | payer SELFPAY ==
[2020-10-22 14:36] VITALS: BP 128/70
[2020-10-22] MEDS ORDERED: HYDROCODONE/ACETAMINOPHEN 5-325 MG TABLET PO ONE (14:42)
[2020-10-22] MEDS ORDERED: SULFAMETHOXAZOLE/TRIMETHOPRIM 800-160 MG TABLET PO ONE (14:42)
--- NOTE | 2020-10-22 14:48 | ER Document Report ---
HPI - HPI Patient complains to provider of: Abscess Time Seen by Provider: 10/22/20 14:38 Onset: Last week Onset/Duration: Persistent Quality of pain: Achy Pain Level: 3 Context: Patient presents complaining of abscess to right buttocks for the past week. Patient reports some drainage from the area. Patient denies any fever. Patient states she has had a history of abscess to the sacral area in the past. Associated Symptoms: denies: Fever Exacerbated by: Sitting, Movement Relieved by: Denies Similar symptoms previously: Yes Recently seen / treated by doctor: No - ROS ROS below otherwise negative: Yes Systems Reviewed and Negative: Yes All other systems reviewed and negative - CONSTITUTIONAL Constitutional: DENIES: Fever, Chills - GASTROINTESTINAL Gastrointestinal: DENIES: Abdominal Pain, Nausea - REPRODUCTIVE Reproductive: DENIES: : - DERM Skin Color: Normal Notes: Abscess to buttock Past Medical History - General Information source: Patient - Social History Smoking Status: Former Smoker Frequency of alcohol use: None Drug Abuse: None Occupation: [employer] Lives with: Family Family History: Hypertension Pulmonary Medical History: Reports: Hx Asthma Renal/ Medical History: Denies: Hx Peritoneal Dialysis Infectious Medical History: Denies: Hx MRSA Surgical Hx: Negative Past Surgical History: Reports: Hx Inguinal Hernia - Immunizations Immunizations up to date: Yes Hx Diphtheria, Pertussis, Tetanus Vaccination: Yes Vertical Provider Document - CONSTITUTIONAL Agree With Documented VS: Yes Exam Limitations: No Limitations General Appearance: WD/WN, No Apparent Distress - INFECTION CONTROL TRAVEL OUTSIDE OF THE [place] IN LAST 30 DAYS: No - HEENT HEENT: Atraumatic, Normocephalic - NECK Neck: Normal Inspection - RESPIRATORY Respiratory: Breath Sounds Normal, No Respiratory Distress - CARDIOVASCULAR Cardiovascular: Regular Rate, Regular Rhythm - BACK Back: Normal Inspection - MUSCULOSKELETAL/EXTREMETIES Musculoskeletal/Extremeties: MAEW - NEURO Level of Consciousness: Awake, Alert, Appropriate Motor/Sensory: No Motor Deficit - DERM Integumentary: Warm, Dry, Abscess - Abscess to right buttock Course - Re-evaluation Re-evalutation: 10/22/20 15:34 Patient with moderate amount of purulent drainage after incision and drainage procedure was performed. Patient tolerated procedure well. Discussed worsening signs or symptoms that patient should return medially for. Patient verbalized understanding is agreeable with discharge plan of care. - Vital Signs Vital signs: Temp Pulse Resp BP Pulse Ox 98.7 F 99 18 128/70 H 100 10/22/20 14:35 10/22/20 14:35 10/22/20 14:35 10/22/20 14:35 10/22/20 14:35 - Laboratory Results Critical Laboratory Results Reviewed: No Critical Results - Radiology Results Critical Radiology Results Reviewed: No Critical Results Procedures - Incision and Drainage Right Buttock Type: Simple Anesthetic type: 1% Lidocaine Blade size: 11 I&D procedure: Betadine prep applied Incision Method: Incision made by scalpel Amount/type of drainage: mod amount of purulent drainage Adult Front & Back picture: 1 - abscess Discharge - Discharge Clinical Impression: Abscess, Encounter for incision and drainage procedure Condition: Stable Disposition: HOME, SELF-CARE Instructions: Abscess ([facility]), Oral Narcotic Medication ([facility]), Post Incision and Drainage, Trimethoprim-Sulfa ([facility]) Additional Instructions: Return immediately for any new or worsening symptoms: Fever, increased pain, lack of improvement or any concerning new symptoms Followup with your primary care provider, call tomorrow to make a followup appointment Prescriptions: Sulfamethoxazole/Trimethoprim [Bactrim Ds Tablet] 1 each PO BID #20 tablet Naproxen [Naprosyn 250 Nmg Tablet] 1 tab PO BID #14 tablet Hydrocodone/Acetaminophen [Felton 5-325 mg Tablet] 1 tab PO Q6 PRN #10 tablet PRN Reason: Forms: Return to Work Referrals: [facility] [Provider Group] - Follow up as needed
== END 2020-10-22 15:49 | disposition home or self-care (01) ==
LOC: ER 14:27
DX: L02.31 Cutaneous abscess of buttock (principal); J45.909 Unspecified asthma, uncomplicated; Z87.891 Personal history of nicotine dependence
CPT/HCPCS: 99284